=== PATIENT | male | born 1970 | race Caucasian/White ===

== ENCOUNTER 2022-09-09 21:44 | Emergency (ER) | payer MEDICAID ==
[~2022-09-09] VITALS: Ht 182.9 cm; Wt 75.6 kg
[2022-09-09 23:35] LABS: Basophils # (auto) 0.1 10 ^3/uL (0-0.2); Basophils % (auto) 0.4 % (0.0-2.0); Eosinophils # (auto) 0.1 10 ^3/uL (0-0.8); Eosinophils % (auto) 0.8 % (0.0-7.0); Hematocrit 45.4 % (41.0-53.0); Hemoglobin 15.1 g/dL (13.5-17.5); Lymphocytes # (auto) 1.7 10 ^3/uL (0.4-5.4); Mean Corpuscular Hemoglobin 28.9 pg (28.0-32.0); Mean Corpuscular Hgb Conc. 33.2 g/dL (32.0-36.0); Mean Corpuscular Volume 87.1 fL (80.0-100.0); Monocytes # (auto) 1.1 10 ^3/uL (0-1.3); Monocytes % (auto) 7.2 % (0.0-12.0); Neutrophils # (auto) 12.6 10 ^3/uL (1.6-8.6); Neutrophils % (auto) 80.6 % (37.0-80.0); Nucleated Red Blood Cells % 0.1 %; Red Blood Cells 5.22 10^6/uL (4.5-5.90); Red Cell Distribution Width 13.9 % (11.8-14.3); White Blood Cell 15.6 10^3/uL (4.4-10.8)
[2022-09-09 23:49] LABS: Albumin 3.7 g/dL (3.4-5.0); BUN/Creatinine Ratio 20.4; Potassium 3.9 mmol/L (3.5-5.1)
[2022-09-09 23:52] LABS: Bilirubin, Total 0.3 mg/dL (0.2-1.0); Total Protein 7.5 g/dL (6.4-8.2)
[2022-09-09 23:58] LABS: Lactic Acid w/Reflex 2.5 mmol/L (0.4-2.0)
[2022-09-10] MEDS ORDERED: cefTRIAXone SOD 1,000 MG VL IM ONE (05:15)
[2022-09-10] MEDS ORDERED: AZITHROMYCIN 250 MG TAB PO ONE (05:15)
[2022-09-10 09:23] VITALS: BP 143/98
== END 2022-09-10 09:24 | disposition home or self-care (01) ==
LOC: ER 21:44
DX: J06.9 Acute upper respiratory infection, unspecified (principal); I10 Essential (primary) hypertension
CPT/HCPCS: 36415; 71045; 80053; 83605; 83880; 84484; 85025; 96372; 99284; J0696

== ENCOUNTER 2023-04-19 16:27 | Emergency (ER) | payer MEDICAID ==
[~2023-04-19] VITALS: Ht 182.9 cm; Wt 88.0 kg
[2023-04-19 16:30] VITALS: BP 154/106; RESP 12; O2SAT 97
[2023-04-19] MEDS ORDERED: NALOXONE HCL 1MG/ML 2ML SYRINGE IV ONE (17:15)
[2023-04-19 18:50] LABS: Basophils # (auto) 0 10 ^3/uL (0-0.2); Basophils % (auto) 0.2 % (0.0-2.0); Eosinophils # (auto) 0.1 10 ^3/uL (0-0.8); Eosinophils % (auto) 0.9 % (0.0-7.0); Hematocrit 47.9 % (41.0-53.0); Hemoglobin 16.3 g/dL (13.5-17.5); Lymphocytes # (auto) 1.4 10 ^3/uL (0.4-5.4); Lymphocytes % (auto) 11.2 % (10.0-50.0); Mean Corpuscular Hemoglobin 29.8 pg (28.0-32.0); Mean Corpuscular Hgb Conc. 34.1 g/dL (32.0-36.0); Mean Corpuscular Volume 87.5 fL (80.0-100.0); Monocytes # (auto) 0.7 10 ^3/uL (0-1.3); Monocytes % (auto) 5.5 % (0.0-12.0); Neutrophils # (auto) 9.9 10 ^3/uL (1.6-8.6); Neutrophils % (auto) 82.2 % (37.0-80.0); Nucleated Red Blood Cells % 0.1 %; Red Blood Cells 5.48 10^6/uL (4.5-5.90); Red Cell Distribution Width 13.9 % (11.8-14.3); White Blood Cell 12.1 10^3/uL (4.4-10.8)
[2023-04-19 19:05] LABS: Alanine Aminotransferase 25 U/L (7-40); Albumin 4.8 g/dL (3.2-4.8); Alkaline Phosphatase 137 U/L (46-116); Anion Gap 3.3 (5-15); Aspartate Aminotransferase 11 U/L (13-40); Blood Urea Nitrogen 12 mg/dL (9-23); Calcium 9.6 mg/dL (8.7-10.4); Carbon Dioxide 31.7 mmol/L (20-30); Chloride 104 mmol/L (98-107); Glucose 179 mg/dL (74-106); Magnesium 2.1 mg/dL (1.6-2.6); Potassium 4.4 mmol/L (3.5-5.1); Sodium 139 mmol/L (136-145)
[2023-04-19 19:06] LABS: Bilirubin, Total 0.5 mg/dL (0.2-1.0); Total Protein 8.2 g/dL (5.7-8.2)
[2023-04-19 19:30] LABS: INR 0.98 (0.9-1.15); Partial Thromboplastin Time 25.9 SEC (24.5-34.5); Prothrombin Time 10.3 sec (9.3-11.8)
[2023-04-19 20:37] VITALS: PULSE 108
== END 2023-04-19 20:30 | disposition left against medical advice (07) ==
LOC: ER 16:27 → EDBD 16:27 → ER 20:03
DX: R53.1 Weakness (principal); R07.81 Pleurodynia; Z79.899 Other long term (current) drug therapy; Z79.01 Long term (current) use of anticoagulants
CPT/HCPCS: 36415; 80053; 82962; 83735; 83880; 84484; 85025; 85610; 85730; 93005

== ENCOUNTER 2025-04-19 23:22 | Inpatient (IN) | payer MEDICAID ==
[~2025-04-19] VITALS: Ht 182.9 cm; Wt 71.6 kg
--- NOTE | 2025-04-19 23:50 | ED.PDOC ---
Musculoskeletal HPI Comments 55-year-old male who came to ER for bilateral foot pain. Patient lives in a wellness house, has been complaining of bilateral foot pain for the past 2 days. Denies any recent trauma. Denies any fever. Chief Complaint: Lower Extremity Time Seen by MD: 00:00 Primary Care Provider: JAGDISH Alexis Notes: Nurses Notes Allergies: Coded Allergies: NO KNOWN ALLERGIES (Unverified , 04/19/23) Mode of Arrival: Ambulatory Location: Bilateral Extremity Location: Foot Timing: Days Severity: Moderate Able to Move Extremity: Yes Bear Weight: Limited Pain: Moderate Hand Dominance: Right Mechanism: Spontaneous Circumstances: Spontaneous Onset of Symptoms: Spontaneous Symptoms: Pain Associated signs and symptoms: Foot pain Past Medical History PAST MEDICAL HISTORY: HTN Past Medical History (Other): Endocarditis Surgical History: Denies all surgeries Family History Family History: Reviewed,noncontributory to illness Social History Smoker: Non-Smoker Alcohol: Denies ETOH Use Drugs: Methamphetamine Lives In: Other (Wellness house) Constitutional: denies: chills, diaphoresis, fatigue, fever, malaise, sweats, weakness, others EENTM: denies: blurred vision, double vision, ear bleeding, ear discharge, ear drainage, ear pain, ear ringing, eye pain, eye redness, hearing loss, mouth pain, mouth swelling, nasal discharge, nose bleeding, nose congestion, nose pain, photophobia, tearing, throat pain, throat swelling, voice changes, others Respiratory: denies: cough, hemoptysis, orthopnea, SOB at rest, shortness of breath, SOB with excertion, stridor, wheezing, others Cardiovascular: denies: chest pain, dizzy spells, diaphoresis, Dyspnea on exertion, edema, irregular heart beat, left arm pain, lightheadedness, palpitations, PND, syncope, others Gastrointestinal: denies: abdomen distended, abdominal pain, blood streaked bowels, constipated, diarrhea, dysphagia, difficulty swallowing, hematemesis, melena, nausea, poor appetite, poor fluid intake, rectal bleeding, rectal pain, vomiting, others Genitourinary: denies: burning, dysuria, flank pain, frequency, hematuria, incontinence, penile discharge, penile sore, pain, testicle pain, testicle swelling, urgency, others Neurological: denies: dizziness, fainting, headache, left sided numbness, left sided weakness, numbness, paresthesia, pre-existing deficit, right sided numbness, right sided weakness, seizure, speech problems, tingling, tremors, weakness, others Musculoskeletal: reports: others (Bilateral foot pain); denies: back pain, gout, joint pain, joint swelling, muscle pain, muscle stiffness, neck pain Integumetry: denies: bruises, change in color, change in hair/nails, dryness, laceration, lesions, lumps, rash, wounds, others Allergic/Immunocompromised: denies: Difficulty Healing, Frequent Infections, Hives, Itching, others Hematologic/Lymphatic: denies: anemia, blood clots, easy bleeding, easy bruising, swollen glands, others Endocrine: denies: excessive hunger, excessive sweating, excessive thirst, excessive urination, flushing, intolerance to cold, intolerance to heat, unexplained weight gain, unexplained weight loss, others Psychiatric: denies: anxiety, bipolar disorder, depression, hopeless, panic disorder, schizophrenia, sleepless, suicidal, others Physical Exam General Appearance: No Apparent Distress, Normal HEENT: Normal ENT Inspection, Pharynx Normal, TMs Normal Neck: Full Range of Motion, Non-Tender, Normal, Normal Inspection Respiratory: Chest Non-Tender, Lungs Clear, No Accessory Muscle Use, No Respiratory Distress, Normal Breath Sounds Cardiovascular: No Edema, No JVD, No Murmur, No Gallop, Normal Peripheral Pulses, Regular Rate/Rhythm Breast Exam: Deferred Gastrointestinal: No Organomegaly, Non Tender, No Pulsatile Mass, Normal Bowel Sounds, Soft Genitalia: Deferred Pelvic: Deferred Rectal: Deferred Extremities: Inflammation (noted erythema, redness over left foot), No calf tenderness, Normal capillary refill, Normal range of motion, No pedal edema, Other (Dried blood located in between toes, with pus seen between 3rd and 4th toe of left foot) Musculoskeletal : Apperance: Normal Neurologic: Alert, tool crib attendant II-XII nml as Tested, No Motor Deficits, Normal Affect, Normal Mood, No Sensory Deficits Cerebellar Function: Normal Reflexes: Normal Skin: Dry, Normal Color, Warm Lymphatic: No Adenopathy Was a procedure done? Was a procedure done?: No Differential Diagnosis EXT Differential Diagnosis: Cellulitis, Compartment Syndrome, Laceration, Septic, Other (necrotizing fasciitis) X-Ray, Labs, Meds, VS Vital Signs Date Time Temp Pulse Resp B/P (MAP) Pulse Ox O2 Delivery O2 Flow Rate FiO2 04/19/25 23:29 98.7 105 20 141/96 100 98.7 Lab Test 04/20/25 00:07 Range/Units White Blood Count 17.0 H 4.4-10.8 10^3/uL Red Blood Count 4.81 4.5-5.90 10^6/uL Hemoglobin 14.5 13.5-17.5 g/dL Hematocrit 41.4 41.0-53.0 % Mean Corpuscular Volume 86.1 80.0-100.0 fL Mean Corpuscular Hemoglobin 30.1 28.0-32.0 pg Mean Corpuscular Hemoglobin Concent 35.0 32.0-36.0 g/dL Red Cell Distribution Width 14.3 11.8-14.3 % Platelet Count 248 140-450 10^3/uL Mean Platelet Volume 6.7 L 6.9-10.8 fL Neutrophils (%) (Auto) 80.0 37.0-80.0 % Lymphocytes (%) (Auto) 8.6 L 10.0-50.0 % Monocytes (%) (Auto) 11.2 0.0-12.0 % Eosinophils (%) (Auto) 0.1 0.0-7.0 % Basophils (%) (Auto) 0.1 0.0-2.0 % Neutrophils # (Auto) 13.5 H 1.6-8.6 10 ^3/uL Lymphocytes # (Auto) 1.5 0.4-5.4 10 ^3/uL Monocytes # (Auto) 1.9 H 0-1.3 10 ^3/uL Eosinophils # (Auto) 0 0-0.8 10 ^3/uL Basophils # (Auto) 0 0-0.2 10 ^3/uL Nucleated Red Blood Cells 0.0 % Sodium Level Pending Potassium Level Pending Chloride Level Pending Carbon Dioxide Level Pending Anion Gap Pending Blood Urea Nitrogen Pending Creatinine Pending Glomerular Filtration Rate Calc Pending BUN/Creatinine Ratio Pending Serum Glucose Pending Lactic Acid Level Pending Calcium Level Pending Time of 1ST Reevaluation: 23:46 Reevaluation 1ST: Unchanged Patient Education/Counseling: Diagnosis, Treatment, Prognosis, Need For Follow Up Family Education/Counseling: No Family Present Sepsis Sepsis Reasesment Focused Exam Orders: Laboratory Tests 04/20/25 00:07: Departure 1 Departure Time of Disposition: 00:34 Impression: Primary Impression: Cellulitis Qualified Codes: L03.116 - Cellulitis of left lower limb Disposition: 09 ADMITTED INPATIENT Admit to: Med Surg Condition: Serious Critical Care Note Critical Care Time?: Yes (55 min-critical care time only) Critical care comment: Due to concerns for patients condition deteriorating, the care required my highest level of attention and readiness to intervene. I assessed the patient, reviewed the medical records, ordered the appropriate tests and treatments, then reassessed for results and responsiveness. I communicated with medical personnel and consultants and formulated a plan of care. Total critical care time excludes any procedures Patient has a homeless individual who lives in a alf. He likely acquired a foot fungal infection which then had a secondary bacterial infection. Now he has cellulitis of the left foot and left lower leg. There is no crepitus area is not swollen necrotizing fasciitis is a possibility but unlikely. He will be admitted for treatment of the foot infection with cellulitis and possibly early sepsis. Stability Stability form required: No Heart Score Heart Score: Heart Score Response (Comments) Value History N/A 0 EKG N/A 0 Age N/A 0 Risk Factors N/A 0 Troponin N/A 0 Total 0 I personally scribed for KEELY ISRAEL MD ([email or web address]) on 04/19/25 at 23:49. Electronically submitted by Blas Berg ([employer]). I personally scribed for KEELY ISRAEL MD ([email or web address]) on 04/20/25 at 00:01. Electronically submitted by Blas Berg ([email or web address]). KEELY ISRAEL MD Apr 19, 2025 23:49
[2025-04-20] VITALS (8 sets, daily range): BP systolic 111–139; BP diastolic 65–89; PULSE 65–113; RESP 17–22; TEMP 97.9–99; O2SAT 94–99
[2025-04-20 00:20] LABS: Hematocrit 41.4 % (41.0-53.0); Hemoglobin 14.5 g/dL (13.5-17.5); Mean Corpuscular Hemoglobin 30.1 pg (28.0-32.0); Mean Corpuscular Volume 86.1 fL (80.0-100.0); Nucleated Red Blood Cells % 0.0 %
--- NOTE | 2025-04-20 00:21 | DVH ---
INDICATION: r/o sepsis TECHNIQUE: Frontal view of the chest. COMPARISON: CHEST PORTABLE on DOS: 09/09/22, CXRP on DOS: 09/09/22 FINDINGS/IMPRESSION: Evaluation of the lung apices is suboptimal due to positioning. No consolidation. The cardiomediasti nal silhouette is unremarkable. No pleural effusion or pneumothorax. No acute osseous abnormality.
[2025-04-20 00:32] LABS: Potassium 3.7 mmol/L (3.5-5.1); Sodium 136 mmol/L (136-145)
[2025-04-20 00:33] LABS: Anion Gap 9 (5-15); Calcium 9.4 mg/dL (8.7-10.4); Carbon Dioxide 29 mmol/L (20-31)
[2025-04-20 00:34] LABS: Chloride 98 mmol/L (98-107)
[2025-04-20 00:38] LABS: BUN/Creatinine Ratio 10.3 (10.0-20.0); Blood Urea Nitrogen 10 mg/dL (9-23)
[2025-04-20 00:39] LABS: Glucose 123 mg/dL (74-106)
[2025-04-20 00:44] LABS: Lactic Acid w/Reflex 2.9 mmol/L (0.4-2.0)
[2025-04-20] MEDS ORDERED: NITROGLYCERIN 0.4 MG SL TAB SL PRN (01:15)
[2025-04-20] MEDS ORDERED: DOCUSATE SOD 100 MG CAP PO PRN (01:15)
[2025-04-20] MEDS ORDERED: VANCOMYCIN PER PHARMACY 0 MG IV SCH (01:15)
--- NOTE | 2025-04-20 01:22 | DVHHP2 ---
History of Present Illness Reason for Visit: Cellulitis History of Present Illness The patient is a 55-year-old male with past medical history of hypertension and endocarditis who presented to [facility] ED with complaint of bilateral foot pain. Patient lives in a wellness house, has been complaining of bilateral foot pain for the past 2 days. Patient was seen and evaluated in the ED, laboratory data shows WBC 17.0, platelets 248, sodium 136, potassium 3.7, BUN 10, creatinine 0.97, glucose 123, lactic acid 2.3, calcium 9.4, blood pressure 141/96, heart rate 104, temperature 98.7 F, O2 saturation 99% on room air. Patient was started on IV antibiotic regimen cefepime, please see me dication orders section in the computer. On my assessment, patient denied chest pain, no headache, no dizziness, no shortness of breaths, no nausea, no vomiting, no fever, no chills. Patient was admitted for further evaluation and medical management. Past Medical History HTN, Endocarditis Past Surgical History Denies all surgeries Family History Reviewed, noncontributory to the management of this case. Past Social History The patient lives at home, denies smoking, alcohol or illicit drugs abuse. Review of Systems Constitutional: No: Fever, Chills, Sweats, Weakness, Malaise, Other Eyes: No: Pain, Vision change, Conjunctivae inflammation, Eyelid inflammation, Other, Redness ENT: No: Ear pain, Ear discharge, Nose pain, Nose discharge, Nose congestion, Mouth pain, Mouth swelling, Throat pain, Throat swelling, Other Respiratory: No: Cough, Dry, Shortness of breath, SOB with excertion, Wheezing, Hemoptysis, Pleuritic Pain, Sputum, Wheezing, Other Cardiovascular: No: Chest Pain, Palpitations, Orthopnea, Paroxysmal Noc. Dyspnea, Edema, Lt Headedness, Other Gastrointestinal: No: Nausea, Vomiting, Abdominal Pain, Diarrhea, Constipation, Melena, Hematochezia, Other Genitourinary: No Dysuria, No Frequency, No Incontinence, No Hematuria, No Retention, No Other Musculoskeletal: other (Bilateral foot pain); No: neck pain, shoulder pain, arm pain, back pain, hand pain, leg pain, foot pain Skin: No: Rash, Lesions, Jaundice, Bruising, Other Neurological: No: Weakness, Numbness, Incoordination, Change in speech, Confusion, Seizures, Other Allergies: Coded Allergies: NO KNOWN ALLERGIES (Unverified , 04/19/23) Medications Current Medications Medications Dose Ordered Sig/[place] Route Start Time Stop Time Status Last Admin Dose Admin Cefepime HCl 50 ml @ 12.5 mls/hr Q8HR IV 04/20/25 06:00 UNV Vancomycin HCl 0 ml @ 0 mls/hr UD IV 04/20/25 01:15 UNV Sodium Chloride 1,000 ml @ 60 mls/hr [id number] IV 04/20/25 01:15 UNV Acetaminophen/ Hydrocodone Bitart 1 tab Q4HP PRN PO 04/20/25 01:15 UNV Ondansetron HCl 4 mg Q4HP PRN IV 04/20/25 01:15 UNV Docusate Sodium 100 mg BIDPRN PRN PO 04/20/25 01:15 UNV Acetaminophen 650 mg Q6HP PRN PO 04/20/25 01:15 UNV Nitroglycerin 0.4 mg Q5MINP PRN SL 04/20/25 01:15 UNV Morphine Sulfate 2 mg Q30M PRN IV 04/20/25 01:15 UNV Exam Vital Signs Vital Signs Date Time Temp Pulse Resp B/P (MAP) Pulse Ox O2 Delivery O2 Flow Rate FiO2 04/19/25 23:29 98.7 105 20 141/96 100 98.7 General Appearance: Alert, Oriented X3, Cooperative, No acute distress HEENT: Atraumatic, PERRLA, EOMI, Mucous membr. moist/pink Respiratory: Normal air movement Cardiovascular: Regular rate, Normal S1, Normal S2, No murmurs Abdominal: Normal bowel sounds, Soft, No tenderness, No hepatospenomegaly, No masses Extremities: No clubbing, No cyanosis, No edema, Normal pulses, No tenderness/swelling Skin: No rashes, No breakdown, No significant lesion Neuro: Normal speech, Normal tone, Sensation intact, Cranial nerves 3-12 NL, Reflexes 2+, Other (Generalized weakness) Psych/Mental Status: Mental status NL, Mood NL Labs/Xrays Labs Test 04/20/25 00:07 Range/Units White Blood Count 17.0 H 4.4-10.8 10^3/uL Red Blood Count 4.81 4.5-5.90 10^6/uL Hemoglobin 14.5 13.5-17.5 g/dL Hematocrit 41.4 41.0-53.0 % Mean Corpuscular Volume 86.1 80.0-100.0 fL Mean Corpuscular Hemoglobin 30.1 28.0-32.0 pg Mean Corpuscular Hemoglobin Concent 35.0 32.0-36.0 g/dL Red Cell Distribution Width 14.3 11.8-14.3 % Platelet Count 248 140-450 10^3/uL Mean Platelet Volume 6.7 L 6.9-10.8 fL Neutrophils (%) (Auto) 80.0 37.0-80.0 % Lymphocytes (%) (Auto) 8.6 L 10.0-50.0 % Monocytes (%) (Auto) 11.2 0.0-12.0 % Eosinophils (%) (Auto) 0.1 0.0-7.0 % Basophils (%) (Auto) 0.1 0.0-2.0 % Neutrophils # (Auto) 13.5 H 1.6-8.6 10 ^3/uL Lymphocytes # (Auto) 1.5 0.4-5.4 10 ^3/uL Monocytes # (Auto) 1.9 H 0-1.3 10 ^3/uL Eosinophils # (Auto) 0 0-0.8 10 ^3/uL Basophils # (Auto) 0 0-0.2 10 ^3/uL Nucleated Red Blood Cells 0.0 % Sodium Level 136 136-145 mmol/L Potassium Level 3.7 3.5-5.1 mmol/L Chloride Level 98 98-107 mmol/L Carbon Dioxide Level 29 20-31 mmol/L Anion Gap 9 5-15 Blood Urea Nitrogen 10 9-23 mg/dL Creatinine 0.97 0.700-1.30 mg/dL Glomerular Filtration Rate Calc 92 >90 mL/min BUN/Creatinine Ratio 10.3 10.0-20.0 Serum Glucose 123 H 74-106 mg/dL Lactic Acid Level 2.9 *H 0.4-2.0 mmol/L Calcium Level 9.4 8.7-10.4 mg/dL PATIENT: OFELIA FIGUEROA ACCT: [id number] UNIT: [id number] : 1970 LOC: ER ROOM / BED: / AGE / SEX: 55 / M ADM STATUS: REG ER SERVICE 44 ORDERING PHYSICIAN: KEELY ISRAEL MD PROCEDURE(s): CXRP - CHEST PORTABLE REASON: r/o sepsis ORDER NUMBER(s): [id number], ACCESSION NUMBER(s): [id number] INDICATION: r/o sepsis TECHNIQUE: Frontal view of the chest. COMPARISON: CHEST PORTABLE on DOS: 09/09/22, CXRP on DOS: 09/09/22 FINDINGS/IMPRESSION: Evaluation of the lung apices is suboptimal due to positioning. No consolidation. The cardiomediastinal silhouette is unremarkable. No pleural effusion or pneumothorax. No acute osseous abnormality. SEPSIS Sepsis Screen Date sepsis recognized/suspect: Apr 19, 2025 Time Sepsis recognized/suspect: 2333 Recent Procedure: No On Antibiotic Therapy: No Respiratory Rate >20: No Heart Rate >90: No Temp<36 C (96.8 F) or >38.3 C: No SBP <90 or MAP <65 mmHG: No New Acute Mental Status Change: No Is the patient on CPAP, BIPAP,: No Physician Orders Urinalysis (04/19/25 23:45) Chest Portable (04/19/25 23:45) Accucheck (04/19/25 23:45) Blood Culture (04/19/25 23:45) Cefepime 1gm/50ml (Maxipime 1gm/50ml) (04/20/25 06:00) Notify Md If Map <65 Or Bp<90 (04/19/25 23:45) If Map<65 Start Vasopressor (04/19/25 23:45) Sepsis Reassesment After Fluid (04/20/25 00:45) Cefepime 1gm/50ml (Maxipime 1gm/50ml) (04/19/25 23:45) Complete Blood Count (04/20/25 04:00) Comprehensive Metabolic Panel (04/20/25 04:00) Vancomycin Per Pharmacy (04/20/25 01:15) Admit (04/20/25 01:11) Allergies (04/20/25 01:11) Code Status (04/20/25 01:11) Sodium Chloride 0.9% (04/20/25 01:15) Oxygen Per Hour (04/20/25 01:11) Hydrocodone-Acet 5/325mg Tab ([place] 5/32 (04/20/25 01:15) Ondansetron Hcl (Zofran) (04/20/25 01:15) Docusate Sodium Capsule (Colace Capsule) (04/20/25 01:15) Complete Blood Count (04/21/25 04:00) Comprehensive Metabolic Panel (04/21/25 04:00) Cardiac Diet-2gna,Lofat,Lochol (04/20/25 Breakfast) Condition: Serious (04/20/25 01:11) Acetaminophen Tablet (Tylenol Tablet) (04/20/25 01:15) Bedrest With Bathroom Privileg (04/20/25 01:11) Sequential Compression Device (04/20/25 ) Nitroglycerin Sublingual (Ntrostat Subli (04/20/25 01:15) Morphine Sulfate Injection (04/20/25 01:15) Notify Md Of Changes From Base (04/20/25 01:11) Emergency Dysrhythmia Protocol (04/20/25 01:11) Oxygen By Nasal Cannula (04/20/25 01:11) Vital Signs Date Time Temp Pulse Resp B/P (MAP) Pulse Ox O2 Delivery O2 Flow Rate FiO2 04/19/25 23:29 98.7 105 20 141/96 100 98.7 Laboratory Tests Test 04/20/25 00:07 Lactic Acid Level 2.9 mmol/L (0.4-2.0) *H White Blood Count 17.0 10^3/uL (4.4-10.8) H Assessment/Plan Assessment/Plan Cellulitis Cellulitis of left lower limb Leukocytosis, unspecified Plan 1. Admit to med surge unit 2. Breathing treatment 3. Pain control management 4. IV antibiotic management 5. Management of fluids and electrolytes 6. Consultation for hospitalist l/wound care 7. Diagnostic test chest x-ray 8. DVT prophylaxis-on SCDs 9. Repeat labs CBC, CMP in a.m. 10. Continue with current medical management 11. Treatment plan discussed with patient and RN. Patient verbalized understanding. Plan discussed with: Patient, Other (RN) My Orders Orders - JAY HERR DNP Procedure Category Date Status Time Complete Blood Count LAB 04/20/25 Logged 04:00 Comprehensive LAB 04/20/25 Logged Metabolic Panel 04:00 Vancomycin Per PHA 04/20/25 Logged Pharmacy 01:15 Admit ADMIT 04/20/25 Transmitted 01:[address] [facility] 04/20/25 In Process 01:11 Code Status CODE 04/20/25 Transmitted 01:11 Sodium Chloride 0.9% PHA 04/20/25 Logged 01:15 Oxygen Per Hour RT 04/20/25 Transmitted 01:11 Hydrocodone-Acet PHA 04/20/25 Logged 5/325mg Tab ([place] 01:15 Ondansetron Hcl [facility] 04/20/25 Logged (Zofran) 01:15 Docusate Sodium [facility] 04/20/25 Logged Capsule (Colace 01:15 Complete Blood Count LAB 04/21/25 Verified 04:00 Comprehensive LAB 04/21/25 Verified Metabolic Panel 04:00 Cardiac DIET 04/20/25 Transmitted Diet-2gna,Lofat,Lochol Breakfast Condition: Serious [facility] 04/20/25 In Process 01:11 Acetaminophen Tablet [facility] 04/20/25 Logged (Tylenol Tablet) 01:15 Bedrest With Bathroom [facility] 04/20/25 In Process Privileg 01:[address] [facility] 04/20/25 In Process Compression Device Nitroglycerin [facility] 04/20/25 Logged Sublingual (Ntrostat 01:15 Morphine Sulfate [facility] 04/20/25 Transmitted Injection 01:15 Notify Md Of Changes [facility] 04/20/25 In Process From Base 01:11 Emergency Dysrhythmia [facility] 04/20/25 In Process Protocol 01:11 Oxygen By Nasal RT 04/20/25 Transmitted Cannula 01:11 Problem List: (1) Cellulitis (2) Cellulitis of left lower limb (3) Leukocytosis, unspecified Date of Service: Apr 20, 2025 Billing Provider: JAY HERR DNP Common Visit Codes: [id number] INP/OBS CARE (HIGH) JAY HERR DNP Apr 20, 2025 01:22
[2025-04-20] MEDS: SODIUM CHLORIDE 0.9% 1,000 ML IV SCH (02:13)
[2025-04-20] MEDS: LACTATED RINGER'S 2,350 ML IV ONE (02:13)
[2025-04-20] MEDS: ONDANSETRON HCL 4 MG/2 ML VIAL IV PRN (02:16)
[2025-04-20] MEDS: CEFEPIME 1GM/50ML 50 ML IV ONE (02:17)
[2025-04-20] MEDS: VANCOMYCIN 1GM/250ML KIT 250 ML IV SCH ×2 (02:17→14:45)
[2025-04-20] MEDS: CEFEPIME 1GM/50ML 50 ML IV SCH ×2 (06:00→09:31)
[2025-04-20] MEDS: HYDROcodone-ACET 5/325MG TAB PO PRN (12:42)
[2025-04-20 13:57] LABS: Hematocrit 41.3 % (41.0-53.0); Hemoglobin 13.8 g/dL (13.5-17.5); Mean Corpuscular Hemoglobin 29.4 pg (28.0-32.0); Mean Corpuscular Volume 87.9 fL (80.0-100.0); Nucleated Red Blood Cells % 0.1 %
[2025-04-20 14:14] LABS: Alanine Aminotransferase 22 U/L (7-40); Albumin 4.1 g/dL (3.2-4.8); Alkaline Phosphatase 93 U/L (46-116); Anion Gap 9 (5-15); BUN/Creatinine Ratio 11.4 (10.0-20.0); Bilirubin, Total 0.5 mg/dL (0.2-1.0); Blood Urea Nitrogen 10 mg/dL (9-23); Calcium 9.0 mg/dL (8.7-10.4); Carbon Dioxide 27 mmol/L (20-31); Chloride 100 mmol/L (98-107); Total Protein 7.2 g/dL (5.7-8.2)
[2025-04-20 14:18] LABS: Potassium 3.2 mmol/L (3.5-5.1); Sodium 136 mmol/L (136-145)
[2025-04-20 14:19] LABS: Glucose 267 mg/dL (74-106)
--- NOTE | 2025-04-20 17:53 | DVHPN2 ---
Subjective Patient is here for left lower extremity cellulitis currently on IV antibiotics. Changes from previous H/P or p: No Changes Eyes: No Pain, No Vision change, No Conjunctivae inflammation, No Eyelid inflammation, No Other, No Redness ENT: No Ear pain, No Ear discharge, No Nose pain, No Nose discharge, No Nose congestion, No Mouth pain, No Mouth swelling, No Throat pain, No Throat swelling, No Other Cardiovascular: No Chest Pain, No Palpitations, No Orthopnea, No Paroxysmal Noc. Dyspnea, No Edema, No Lt Headedness, No Other Respiratory: No Cough, No Dry, No Shortness of breath, No SOB with excertion, No Wheezing, No Hemoptysis, No Pleuritic Pain, No Sputum, No Other Gastrointestinal: No Nausea, No Vomiting, No Abdominal Pain, No Diarrhea, No Constipation, No Melena, No Hematochezia, No Other Genitourinary: No Dysuria, No Frequency, No Incontinence, No Hematuria, No Retention, No Other Musculoskeletal: other (Bilateral foot pain); No neck pain, No shoulder pain, No arm pain, No back pain, No hand pain, No leg pain, No foot pain Skin: No Rash, No Lesions, No Jaundice, No Bruising, No Other Objective Vitals Vital Signs Date Time Temp Pulse Resp B/P (MAP) Pulse Ox O2 Delivery O2 Flow Rate FiO2 04/20/25 17:24 98.4 65 21 111/79 (90) 99 98.4 04/20/25 07:30 Room Air* 0 21 Exam HEENT pupils are reactive Neck is supple CV is S1-S2 regular rate and rhythm Respiratory are clear GI positive bowel sound Extremity no edema [employer] no motor deficits Left 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 Medications Current Medications Medications Dose Ordered Sig/[place] Route Start Time Stop Time Status Last Admin Dose Admin Vancomycin HCl 0 ml @ 0 mls/hr UD IV 04/20/25 01:15 Sodium Chloride 1,000 ml @ 60 mls/hr [id number] IV 04/20/25 01:15 04/20/25 06:58 60 MLS/HR Ondansetron HCl 4 mg Q4HP PRN IV 04/20/25 01:15 04/20/25 02:16 4 MG Docusate Sodium 100 mg BIDPRN PRN PO 04/20/25 01:15 Acetaminophen 650 mg Q6HP PRN PO 04/20/25 01:15 Nitroglycerin 0.4 mg Q5MINP PRN SL 04/20/25 01:15 Morphine Sulfate 2 mg Q30M PRN IV 04/20/25 01:15 Cefepime HCl 50 ml @ 12.5 mls/hr Q8H IV 04/20/25 10:00 04/20/25 17:22 12.5 MLS/HR Alprazolam 0.5 mg BID PRN PO 04/20/25 16:15 Acetaminophen/ Hydrocodone Bitart 1 tab Q6HP PRN PO 04/20/25 16:15 Laboratory Results Laboratory Tests 04/20/25 13:27 Chemistry Test 04/20/25 00:07 04/20/25 13:27 Calcium Level 9.4 mg/dL (8.7-10.4) 9.0 mg/dL (8.7-10.4) Albumin 4.1 g/dL (3.2-4.8) Total Protein 7.2 g/dL (5.7-8.2) LFT Test 04/20/25 13:27 Alanine Aminotransferase (ALT) 22 U/L (7-40) Alkaline Phosphatase 93 U/L (46-116) Aspartate Amino Transferase (AST) 19 U/L (13-40) Total Bilirubin 0.5 mg/dL (0.2-1.0) Assessment/Plan Assessment/Plan 55-year-old male presented to the hospital with a bilateral lower extremity foot pain found to have 1. Left lower extremity cellulitis 2. Leukocytosis likely reactive secondary to 1. 3. Lactic acidosis -IV fluids IV antibiotics, repeat labs Plan discussed with: Patient My Orders Orders - SANTO ESCOBAR MD Procedure Category Date Status Time *Tele Psych Consult CONS 04/20/25 Transmitted 11:28 Alprazolam Tablet PHA 04/20/25 In Process (Xanax Tablet) 16:15 Hydrocodone-Acet PHA 04/20/25 In Process 10/325mg Tab ([place] 16:15 Date of Service: Apr 20, 2025 Billing Provider: SANTO ESCOBAR MD Common Visit Codes: [id number] INP/OBS CARE(MOD) SANTO ESCOBAR MD Apr 20, 2025 17:53
[2025-04-20] MEDS: HYDROcodone-ACET 10/325MG TAB PO PRN (20:02)
[2025-04-20] MEDS: ALPRAZolam 0.5 MG TAB PO PRN (21:12)
[2025-04-21 05:00] VITALS: BP 113/82; PULSE 86; RESP 18; TEMP 97.5; O2SAT 98
[2025-04-21 07:30] VITALS: PULSE 86; RESP 18; O2SAT 98
[2025-04-21 09:05] VITALS: BP 127/85; PULSE 89; RESP 18; TEMP 96; O2SAT 99
[2025-04-21 09:09] LABS: Hematocrit 38.3 % (41.0-53.0); Hemoglobin 13.2 g/dL (13.5-17.5); Mean Corpuscular Hemoglobin 29.7 pg (28.0-32.0); Mean Corpuscular Volume 85.8 fL (80.0-100.0); Nucleated Red Blood Cells % 0.0 %
[2025-04-21 09:26] LABS: Alanine Aminotransferase 26 U/L (7-40); Albumin 4.1 g/dL (3.2-4.8); Alkaline Phosphatase 88 U/L (46-116); Anion Gap 7 (5-15); BUN/Creatinine Ratio 13.1 (10.0-20.0); Bilirubin, Total 0.3 mg/dL (0.2-1.0); Blood Urea Nitrogen 11 mg/dL (9-23); Calcium 9.1 mg/dL (8.7-10.4); Carbon Dioxide 31 mmol/L (20-31); Chloride 100 mmol/L (98-107); Potassium 3.5 mmol/L (3.5-5.1); Sodium 138 mmol/L (136-145); Total Protein 7.2 g/dL (5.7-8.2)
[2025-04-21 09:34] LABS: Glucose 186 mg/dL (74-106)
[2025-04-21] MEDS: ACETAMINOPHEN 325 MG TAB PO PRN (09:38)
[2025-04-21 13:00] VITALS: BP 129/71; PULSE 71; RESP 18; TEMP 96.3; O2SAT 98
[2025-04-21 17:00] VITALS: BP 135/91; PULSE 83; RESP 20; TEMP 97.6; O2SAT 98
--- NOTE | 2025-04-21 18:06 | DVHPN2 ---
Subjective Patient is here for left lower extremity cellulitis currently on IV antibiotics. Changes from previous H/P or p: No Changes Eyes: No Pain, No Vision change, No Conjunctivae inflammation, No Eyelid inflammation, No Other, No Redness ENT: No Ear pain, No Ear discharge, No Nose pain, No Nose discharge, No Nose congestion, No Mouth pain, No Mouth swelling, No Throat pain, No Throat swelling, No Other Cardiovascular: No Chest Pain, No Palpitations, No Orthopnea, No Paroxysmal Noc. Dyspnea, No Edema, No Lt Headedness, No Other Respiratory: No Cough, No Dry, No Shortness of breath, No SOB with excertion, No Wheezing, No Hemoptysis, No Pleuritic Pain, No Sputum, No Other Gastrointestinal: No Nausea, No Vomiting, No Abdominal Pain, No Diarrhea, No Constipation, No Melena, No Hematochezia, No Other Genitourinary: No Dysuria, No Frequency, No Incontinence, No Hematuria, No Retention, No Other Musculoskeletal: other (Bilateral foot pain); No neck pain, No shoulder pain, No arm pain, No back pain, No hand pain, No leg pain, No foot pain Skin: No Rash, No Lesions, No Jaundice, No Bruising, No Other Objective Vitals Vital Signs Date Time Temp Pulse Resp B/P (MAP) Pulse Ox O2 Delivery O2 Flow Rate FiO2 04/21/25 17:00 97.6 83 20 135/91 (106) 98 97.6 04/21/25 07:30 Room Air* 0 21 Intake/Output Intake and Output 04/21/25 07:00 Intake Total 3100 ml Balance 3100 ml Intake Oral 3100 ml # Voids 5 Exam HEENT pupils are reactive Neck is supple CV is S1-S2 regular rate and rhythm Respiratory are clear GI positive bowel sound 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 Medications Current Medications Medications Dose Ordered Sig/Lowell Route Start Time Stop Time Status Last Admin Dose Admin Vancomycin HCl 0 ml @ 0 mls/hr UD IV 04/20/25 01:15 Sodium Chloride 1,000 ml @ 60 mls/hr [id number] IV 04/20/25 01:15 04/20/25 06:58 60 MLS/HR Ondansetron HCl 4 mg Q4HP PRN IV 04/20/25 01:15 04/20/25 02:16 4 MG Docusate Sodium 100 mg BIDPRN PRN PO 04/20/25 01:15 Acetaminophen 650 mg Q6HP PRN PO 04/20/25 01:15 04/21/25 09:38 650 MG Nitroglycerin 0.4 mg Q5MINP PRN SL 04/20/25 01:15 Morphine Sulfate 2 mg Q30M PRN IV 04/20/25 01:15 Cefepime HCl 50 ml @ 12.5 mls/hr Q8H IV 04/20/25 10:00 04/21/25 17:48 12.5 MLS/HR Alprazolam 0.5 mg BID PRN PO 04/20/25 16:15 04/21/25 09:38 0.5 MG Acetaminophen/ Hydrocodone Bitart 1 tab Q6HP PRN PO 04/20/25 16:15 04/21/25 17:48 1 TAB Vancomycin HCl 250 ml @ 250 mls/hr Q12H IV 04/21/25 14:00 Laboratory Results Laboratory Tests 04/21/25 08:47 Chemistry Test 04/21/25 08:47 Albumin 4.1 g/dL (3.2-4.8) Calcium Level 9.1 mg/dL (8.7-10.4) Total Protein 7.2 g/dL (5.7-8.2) LFT Test 04/21/25 08:47 Alanine Aminotransferase (ALT) 26 U/L (7-40) Alkaline Phosphatase 88 U/L (46-116) Aspartate Amino Transferase (AST) 22 U/L (13-40) Total Bilirubin 0.3 mg/dL (0.2-1.0) Microbiology Microbiology Date/Time Source Procedure Growth Status 04/20/25 00:07 Blood Blood Culture - Preliminary NO GROWTH AFTER 24 HOURS OF INCUBATION. Resulted Assessment/Plan Assessment/Plan 55-year-old male presented to the hospital with a bilateral lower extremity foot pain found to have 1. Left lower extremity cellulitis 2. Leukocytosis likely reactive secondary to 1. 3. Lactic acidosis -IV fluids IV antibiotics, discharge plan. Plan discussed with: Patient Date of Service: Apr 21, 2025 Billing Provider: SANTO ESCOBAR MD Common Visit Codes: [id number] INP/OBS CARE(MOD) SANTO ESCOBAR MD Apr 21, 2025 18:06
[2025-04-21] MEDS: VANCOMYCIN 1GM/250ML KIT 250 ML IV SCH (18:10)
[2025-04-21 21:00] VITALS: BP 122/87; PULSE 84; RESP 18; TEMP 98.1; O2SAT 98
[2025-04-21] MEDS ORDERED: VANCOMYCIN 1GM/250ML KIT 250 ML IV ONE (21:24)
[2025-04-22] VITALS (7 sets, daily range): BP systolic 133–154; BP diastolic 77–100; PULSE 63–81; RESP 18–20; TEMP 96.8–98; O2SAT 97–99
--- NOTE | 2025-04-22 16:30 | DVHPN2 ---
Subjective Patient is here for left lower extremity cellulitis currently on IV antibiotics. Changes from previous H/P or p: No Changes Eyes: No Pain, No Vision change, No Conjunctivae inflammation, No Eyelid inflammation, No Other, No Redness ENT: No Ear pain, No Ear discharge, No Nose pain, No Nose discharge, No Nose congestion, No Mouth pain, No Mouth swelling, No Throat pain, No Throat swelling, No Other Cardiovascular: No Chest Pain, No Palpitations, No Orthopnea, No Paroxysmal Noc. Dyspnea, No Edema, No Lt Headedness, No Other Respiratory: No Cough, No Dry, No Shortness of breath, No SOB with excertion, No Wheezing, No Hemoptysis, No Pleuritic Pain, No Sputum, No Other Gastrointestinal: No Nausea, No Vomiting, No Abdominal Pain, No Diarrhea, No Constipation, No Melena, No Hematochezia, No Other Genitourinary: No Dysuria, No Frequency, No Incontinence, No Hematuria, No Retention, No Other Musculoskeletal: other (Bilateral foot pain); No neck pain, No shoulder pain, No arm pain, No back pain, No hand pain, No leg pain, No foot pain Skin: No Rash, No Lesions, No Jaundice, No Bruising, No Other Objective Vitals Vital Signs Date Time Temp Pulse Resp B/P (MAP) Pulse Ox O2 Delivery O2 Flow Rate FiO2 04/22/25 13:00 98.0 66 20 138/77 (97) 97 98.0 04/22/25 08:30 Room Air* 0 21 Intake/Output Intake and Output 04/22/25 07:00 Intake Total 2100 ml Balance 2100 ml Intake Oral 1450 ml IV Total 650 ml # Voids 6 Exam HEENT pupils are reactive Neck is supple CV is S1-S2 regular rate and rhythm Respiratory are clear GI positive bowel sound 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 Medications Current Medications Medications Dose Ordered Sig/Lowell Route Start Time Stop Time Status Last Admin Dose Admin Vancomycin HCl 0 ml @ 0 mls/hr UD IV 04/20/25 01:15 Sodium Chloride 1,000 ml @ 60 mls/hr [id number] IV 04/20/25 01:15 04/20/25 06:58 60 MLS/HR Ondansetron HCl 4 mg Q4HP PRN IV 04/20/25 01:15 04/20/25 02:16 4 MG Docusate Sodium 100 mg BIDPRN PRN PO 04/20/25 01:15 Acetaminophen 650 mg Q6HP PRN PO 04/20/25 01:15 04/21/25 19:28 650 MG Nitroglycerin 0.4 mg Q5MINP PRN SL 04/20/25 01:15 Morphine Sulfate 2 mg Q30M PRN IV 04/20/25 01:15 Cefepime HCl 50 ml @ 12.5 mls/hr Q8H IV 04/20/25 10:00 04/22/25 10:13 12.5 MLS/HR Alprazolam 0.5 mg BID PRN PO 04/20/25 16:15 04/22/25 11:51 0.5 MG Acetaminophen/ Hydrocodone Bitart 1 tab Q6HP PRN PO 04/20/25 16:15 04/21/25 17:48 1 TAB Vancomycin HCl 250 ml @ 250 mls/hr Q12H IV 04/21/25 14:00 04/22/25 01:23 250 MLS/HR Laboratory Results Laboratory Tests 04/21/25 08:47 04/22/25 06:22 Microbiology Microbiology Date/Time Source Procedure Growth Status 04/20/25 00:07 Blood Blood Culture - Preliminary NO GROWTH AFTER 48 HOURS OF INCUBATION. Resulted Assessment/Plan Assessment/Plan 55-year-old male presented to the hospital with a bilateral lower extremity foot pain found to have 1. Left lower extremity cellulitis 2. Leukocytosis likely reactive secondary to 1. 3. Lactic acidosis 4. Chronic tobacco use disorder -IV fluids IV antibiotics, discharge plan. Plan discussed with: Patient Date of Service: Apr 22, 2025 Billing Provider: SANTO ESCOBAR MD Common Visit Codes: [id number] INP/OBS CARE(MOD) SANTO ESCOBAR MD Apr 22, 2025 16:30
[2025-04-22] MEDS: SULFAMETHOX W/TRIMETH(800/160MG) DS TAB PO SCH (22:33)
[2025-04-23] VITALS (8 sets, daily range): BP systolic 117–185; BP diastolic 73–116; PULSE 52–79; RESP 16–20; TEMP 96.3–99.3; O2SAT 95–100
[2025-04-23] MEDS ORDERED: ATEN25TA PO (01:22)
--- NOTE | 2025-04-23 16:06 | DVHPN2 ---
Subjective Patient is here for left lower extremity cellulitis currently on IV antibiotics. Today patient is complaining of nausea vomiting and not tolerating diet. Changes from previous H/P or p: No Changes Eyes: No Pain, No Vision change, No Conjunctivae inflammation, No Eyelid inflammation, No Other, No Redness ENT: No Ear pain, No Ear discharge, No Nose pain, No Nose discharge, No Nose congestion, No Mouth pain, No Mouth swelling, No Throat pain, No Throat swelling, No Other Cardiovascular: No Chest Pain, No Palpitations, No Orthopnea, No Paroxysmal Noc. Dyspnea, No Edema, No Lt Headedness, No Other Respiratory: No Cough, No Dry, No Shortness of breath, No SOB with excertion, No Wheezing, No Hemoptysis, No Pleuritic Pain, No Sputum, No Other Gastrointestinal: No Nausea, No Vomiting, No Abdominal Pain, No Diarrhea, No Constipation, No Melena, No Hematochezia, No Other Genitourinary: No Dysuria, No Frequency, No Incontinence, No Hematuria, No Retention, No Other Musculoskeletal: other (Bilateral foot pain); No neck pain, No shoulder pain, No arm pain, No back pain, No hand pain, No leg pain, No foot pain Skin: No Rash, No Lesions, No Jaundice, No Bruising, No Other Objective Vitals Vital Signs Date Time Temp Pulse Resp B/P (MAP) Pulse Ox O2 Delivery O2 Flow Rate FiO2 04/23/25 13:00 98.1 70 16 174/98 (123) 99 98.1 04/23/25 08:00 Room Air* 0 21 Intake/Output Intake and Output 04/23/25 07:00 Intake Total 840 ml Balance 840 ml Intake Oral 790 ml IV Total 50 ml # Voids 7 # Bowel Movements 5 Exam HEENT pupils are reactive Neck is supple CV is S1-S2 regular rate and rhythm Respiratory are clear GI positive bowel sound 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 Medications Current Medications Medications Dose Ordered Sig/Lowell Route Start Time Stop Time Status Last Admin Dose Admin Sodium Chloride 1,000 ml @ 60 mls/hr [id number] IV 04/20/25 01:15 04/23/25 12:40 60 MLS/HR Ondansetron HCl 4 mg Q4HP PRN IV 04/20/25 01:15 04/23/25 12:48 4 MG Docusate Sodium 100 mg BIDPRN PRN PO 04/20/25 01:15 Acetaminophen 650 mg Q6HP PRN PO 04/20/25 01:15 04/21/25 19:28 650 MG Nitroglycerin 0.4 mg Q5MINP PRN SL 04/20/25 01:15 Morphine Sulfate 2 mg Q30M PRN IV 04/20/25 01:15 Alprazolam 0.5 mg BID PRN PO 04/20/25 16:15 04/22/25 11:51 0.5 MG Acetaminophen/ Hydrocodone Bitart 1 tab Q6HP PRN PO 04/20/25 16:15 04/21/25 17:48 1 TAB Trimethoprim/ Sulfamethoxazole 1 tab Q12HR PO 04/22/25 22:00 04/22/25 22:33 1 TAB Hydralazine HCl 10 mg Q6HP PRN PO 04/23/25 05:45 Hydralazine HCl 10 mg Q6HP PRN IV 04/23/25 14:15 Morphine Sulfate 2 mg Q4HPRN PRN IV 04/23/25 14:15 Laboratory Results Laboratory Tests 04/21/25 08:47 04/23/25 00:59 Microbiology Microbiology Date/Time Source Procedure Growth Status 04/20/25 00:07 Blood Blood Culture - Preliminary NO GROWTH AFTER 72 HOURS OF INCUBATION. Resulted Assessment/Plan Assessment/Plan 55-year-old male presented to the hospital with a bilateral lower extremity foot pain found to have 1. Left lower extremity cellulitis, improving 2. Leukocytosis likely reactive secondary to 1. 3. Lactic acidosis, improved 4. Chronic tobacco use disorder 5. Intractable nausea and vomiting, Zofran p.r.n. nausea and vomiting, diet as tolerated -discontinue vancomycin and cefepime, start Bactrim p.o., discharge plan once tolerates diet. Plan discussed with: Patient My Orders Orders - SANTO ESCOBAR MD Procedure Category Date Status Time Sulfamethoxazole PHA 04/22/25 In Process W/Trimeth Tab (Bactrim 22:00 Hydralazine Injection PHA 04/23/25 In Process (Apresoline Inject 14:15 Morphine Sulfate PHA 04/23/25 In Process Injection 14:15 Date of Service: Apr 23, 2025 Billing Provider: SANTO ESCOBAR MD Common Visit Codes: [id number] INP/OBS CARE(MOD) SANTO ESCOBAR MD Apr 23, 2025 16:06
[2025-04-23] MEDS: hydrALAZINE HCL 20 MG/ML VL IV PRN (16:07)
[2025-04-23] MEDS: MORPHINE SULFATE INJ 2 MG/ml SYRG IV PRN (16:08)
[2025-04-24 01:00] VITALS: BP 151/83; PULSE 19; RESP 97; TEMP 98.2; O2SAT 97
[2025-04-24] MEDS: MORPHINE SULFATE INJ 2 MG/ml SYRG IV PRN (01:39)
[2025-04-24 05:00] VITALS: BP 190/104; PULSE 76; RESP 20; TEMP 98.4; O2SAT 98
[2025-04-24 08:00] VITALS: RESP 16
--- NOTE | 2025-04-24 15:03 | DVHDS2 ---
Discharge Summary Date of Admission Apr 20, 2025 at 01:11 Date of Discharge: Apr 24, 2025 Labs/Diagnostic Data: Laboratory Results Test 04/23/25 00:59 04/21/25 08:47 04/20/25 02:05 Creatinine 0.64 mg/dL (0.700-1.30) Glomerular Filtration Rate Calc 111 mL/min (>90) Vancomycin Level Trough 3.2 ug/mL (5-10) White Blood Count 10.0 10^3/uL (4.4-10.8) Red Blood Count 4.46 10^6/uL (4.5-5.90) Hemoglobin 13.2 g/dL (13.5-17.5) Hematocrit 38.3 % (41.0-53.0) Mean Corpuscular Volume 85.8 fL (80.0-100.0) Mean Corpuscular Hemoglobin 29.7 pg (28.0-32.0) Mean Corpuscular Hemoglobin Concent 34.6 g/dL (32.0-36.0) Red Cell Distribution Width 14.3 % (11.8-14.3) Platelet Count 258 10^3/uL (140-450) Mean Platelet Volume 6.9 fL (6.9-10.8) Neutrophils (%) (Auto) 73.7 % (37.0-80.0) Lymphocytes (%) (Auto) 13.8 % (10.0-50.0) Monocytes (%) (Auto) 9.7 % (0.0-12.0) Eosinophils (%) (Auto) 2.3 % (0.0-7.0) Basophils (%) (Auto) 0.5 % (0.0-2.0) Neutrophils # (Auto) 7.4 10 ^3/uL (1.6-8.6) Lymphocytes # (Auto) 1.4 10 ^3/uL (0.4-5.4) Monocytes # (Auto) 1.0 10 ^3/uL (0-1.3) Eosinophils # (Auto) 0.2 10 ^3/uL (0-0.8) Basophils # (Auto) 0 10 ^3/uL (0-0.2) Nucleated Red Blood Cells 0.0 % Sodium Level 138 mmol/L (136-145) Potassium Level 3.5 mmol/L (3.5-5.1) Chloride Level 100 mmol/L (98-107) Carbon Dioxide Level 31 mmol/L (20-31) Anion Gap 7 (5-15) Blood Urea Nitrogen 11 mg/dL (9-23) BUN/Creatinine Ratio 13.1 (10.0-20.0) Serum Glucose 186 mg/dL (74-106) Calcium Level 9.1 mg/dL (8.7-10.4) Total Bilirubin 0.3 mg/dL (0.2-1.0) Aspartate Amino Transferase (AST) 22 U/L (13-40) Alanine Aminotransferase (ALT) 26 U/L (7-40) Alkaline Phosphatase 88 U/L (46-116) Total Protein 7.2 g/dL (5.7-8.2) Albumin 4.1 g/dL (3.2-4.8) Lactic Acid Level 1.8 mmol/L (0.4-2.0) Other Laboratory Tests 04/23/25 00:59 04/21/25 08:47 Brief Hx & Hospital Course: here for left lower extremity cellulitis currently on IV antibiotics. informs RN he wants to leave ama. 55-year-old male presented to the hospital with a bilateral lower extremity foot pain found to have dx Sepsis due to below Left lower extremity cellulitis, improving Neutrophilia Leukocytosis likely reactive secondary to above Tachycardia Tachypnea Lactic acidosis, improved Chronic tobacco use disorder Intractable nausea and vomiting, plan: Patient was on p.o. Bactrim , waiting for patient to tolerate diet but he is unable to wait for physician to assess and proceed with discharge plan. Patient notified nursing also leave AMA, patient accepted all risks including . Patient left AMA Condition at Discharge: Undetermined Final Diagnosis/Problems List Sepsis due to below Left lower extremity cellulitis, improving Neutrophilia Leukocytosis likely reactive secondary to above Tachycardia Tachypnea Lactic acidosis, improved Chronic tobacco use disorder Intractable nausea and vomiting, Discharge Disposition: AMA Discharge Instruct/Medications Scheduled Atenolol (Atenolol), 1 TAB PO DAILY, (Reported) Discharge Statement: "Patient was advised to return to the ER or call 911 if any headaches, dizziness, shortness of breath, chest pain, abdominal pain, bleeding, fevers, or worsening of medical condition. Patient was counseled about treatment plan, medications, possible side effects, patientverbalized understanding. All questions were answered to the best of my ability. This discharge took greater then 30 minutes in planning, reviewing documentation, counseling the patient, and discussing with other team members." ASSESSMENT ASSESSMENT Assessment Date of Service: Apr 24, 2025 Billing Provider: TRINA DEJESUS MD Common Visit Codes: NOT BILLABLE TRINA DEJESUS MD Apr 24, 2025 15:03
== END 2025-04-24 10:30 | disposition left against medical advice (07) | DRG 720 ==
LOC: ER 23:22 → OVERFLOW 04-20 01:11 → WEST WING 04-20 07:50
PROVIDERS: ADMIT Student in an Organized Health Care Education/Training Program; ATTEND Student in an Organized Health Care Education/Training Program
DX: A41.9 Sepsis, unspecified organism (principal); E87.20 Acidosis, unspecified; L03.116 Cellulitis of left lower limb; I10 Essential (primary) hypertension; F17.200 Nicotine dependence, unspecified, uncomplicated; Z53.29 Procedure and treatment not carried out because of patient's decision for other reasons
CPT/HCPCS: 36415; 71045; 80048; 80053; 80202; 82565; 83605; 85025; 87040; 99291; G0378; J2405

== ENCOUNTER 2025-05-18 00:52 | Inpatient (IN) | payer MEDICAID ==
[~2025-05-18] VITALS: Ht 180.3 cm; Wt 72.7 kg
[~2025-05-18 00:52] MED LIST: ATEN25TA PO
--- NOTE | 2025-05-18 01:35 | ED.PDOC ---
Musculoskeletal HPI Comments PT CAME TO THE ER WITH CC OF RIGHT FOOT SWELLING, LESION AND PAIN X2DAYS. PT IS A&OX4 RR EVEN AND REGULAR NO DISTRESS NOTED AT THIS TIME. PT DENIES N/V/D CP SOB, FEVER, CHILLS, INJURY, NUMBNESS OR WEAKNESS. REPORTS HX OF HTN. DENIES HX OF CURRENT DRUG OR ALCOHOL ABUSE Chief Complaint: Lower Extremity Time Seen by MD: 01:03 Primary Care Provider: JAGDISH Reviewed Notes: Nurses Notes, Medications, Allergies Allergies: Coded Allergies: NO KNOWN ALLERGIES (Unverified , 04/19/23) Home Meds Reported Medications Atenolol (Atenolol) 25 Mg Tab, 1 TAB PO DAILY 04/23/25 Information Source: Patient Mode of Arrival: Ambulatory Past Medical History PAST MEDICAL HISTORY: HTN Surgical History: Denies all surgeries Family History Family History: Reviewed,noncontributory to illness Social History Smoker: Non-Smoker Alcohol: Denies ETOH Use Drugs: Methamphetamine Lives In: Other All Other Systems: Reviewed and Negative (SEE HPI) Physical Exam General Appearance: No Apparent Distress, Normal HEENT: Pharynx Normal Neck: Full Range of Motion, Non-Tender Respiratory: Lungs Clear, No Respiratory Distress, Normal Breath Sounds Cardiovascular: No Edema, No JVD, No Murmur, No Gallop, Normal Peripheral Pulses, Regular Rate/Rhythm Breast Exam: Deferred Gastrointestinal: No Organomegaly, Non Tender, No Pulsatile Mass, Normal Bowel Sounds, Soft Genitalia: Deferred Pelvic: Deferred Rectal: Deferred Extremities: Inflammation, Leg edema (PLUS TWO PITTING RIGHT FOOT, AND ANKLE), Normal capillary refill, Pedal edema, Tender (RIGHT FOOT ANKLE AND LOWER LEG) Musculoskeletal : Apperance: Normal Neurologic: Alert, print washer II-XII nml as Tested, No Motor Deficits, Normal Affect, Normal Mood, No Sensory Deficits Cerebellar Function: Normal Reflexes: Normal Skin: Dry, Normal Color, Warm, Wounds (MULTIPLE OPEN LESIONS DORSUM ASPECT OF RIGHT FOOT AND PLANTAR ASPECT NO NOTED DRAINAGE OR BLEEDING NOTED SURROUNDING ERYTHEMA AND EDEMA. MULTIPLE SCABBED OVER LESIONS RIGHT FOREARM NO NOTED DRAINAGE OR ERYTHEMA OR EDEMA) Lymphatic: No Adenopathy Was a procedure done? Was a procedure done?: No Differential Diagnosis EXT Differential Diagnosis: Cellulitis, Compartment Syndrome, Fracture, Sprain, Gout, Contusion, Strain X-Ray, Labs, Meds, VS Vital Signs Date Time Temp Pulse Resp B/P (MAP) Pulse Ox O2 Delivery O2 Flow Rate FiO2 05/18/25 00:57 97.5 102 20 151/94 96 97.5 Lab Test 05/18/25 01:44 Range/Units White Blood Count 10.9 H 4.4-10.8 10^3/uL Red Blood Count 4.11 L 4.5-5.90 10^6/uL Hemoglobin 12.2 L 13.5-17.5 g/dL Hematocrit 35.5 L 41.0-53.0 % Mean Corpuscular Volume 86.3 80.0-100.0 fL Mean Corpuscular Hemoglobin 29.6 28.0-32.0 pg Mean Corpuscular Hemoglobin Concent 34.3 32.0-36.0 g/dL Red Cell Distribution Width 14.7 H 11.8-14.3 % Platelet Count 290 140-450 10^3/uL Mean Platelet Volume 7.2 6.9-10.8 fL Neutrophils (%) (Auto) 73.8 37.0-80.0 % Lymphocytes (%) (Auto) 13.3 10.0-50.0 % Monocytes (%) (Auto) 9.5 0.0-12.0 % Eosinophils (%) (Auto) 2.9 0.0-7.0 % Basophils (%) (Auto) 0.5 0.0-2.0 % Neutrophils # (Auto) 8.0 1.6-8.6 10 ^3/uL Lymphocytes # (Auto) 1.5 0.4-5.4 10 ^3/uL Monocytes # (Auto) 1.0 0-1.3 10 ^3/uL Eosinophils # (Auto) 0.3 0-0.8 10 ^3/uL Basophils # (Auto) 0.1 0-0.2 10 ^3/uL Nucleated Red Blood Cells 0.3 % D-Dimer, Quantitative 0.51 H 0.0-0.49 mg/L FEU Sodium Level 139 136-145 mmol/L Potassium Level 4.0 3.5-5.1 mmol/L Chloride Level 101 98-107 mmol/L Carbon Dioxide Level 28 20-31 mmol/L Anion Gap 10 5-15 Blood Urea Nitrogen 9 9-23 mg/dL Creatinine 0.79 0.700-1.30 mg/dL Glomerular Filtration Rate Calc 104 >90 mL/min BUN/Creatinine Ratio 11.4 10.0-20.0 Serum Glucose 130 H 74-106 mg/dL Calcium Level 9.1 8.7-10.4 mg/dL Total Bilirubin 0.3 0.2-1.0 mg/dL Aspartate Amino Transferase (AST) 21 13-40 U/L Alanine Aminotransferase (ALT) 31 7-40 U/L Alkaline Phosphatase 91 46-116 U/L Total Protein 7.5 5.7-8.2 g/dL Albumin 4.2 3.2-4.8 g/dL Current Medications Medications (Trade) Dose Ordered Sig/Lowell Route Start Time Stop Time Status Last Admin Vancomycin HCl 250 ml @ 250 mls/hr ONCE ONCE IV 05/18/25 01:45 05/18/25 02:44 DC 05/18/25 02:13 X-Ray, Labs, Meds, VS Comment CBC WITH BUMP IN WBC 10.9. CMP ELEVATED GLUCOSE AT 130 NONFASTING. THE LIVER KIDNEY FUNCTION APPEARS WITHIN NORMAL LIMITS D-DIMER ELEVATED AT 0.51. RIGHT LOWER EXTREMITY ULTRASOUND ORDERED TO RULE OUT DVT BATCH DUMPER PAGED PENDING. Ultrasound right lower extremity Impression: 1. No right femoropopliteal venous thrombosis. 2. Prominent right inguinal lymph node measures up to 2.3 cm. WILL ADMIT FOR RIGHT LOWER EXTREMITY CELLULITIS IV ANTIBIOTICS. PATIENT IS STARTED ON VANCOMYCIN 1 G IV PIGGYBACK. Ultrasound negative for DVT of right lower extremity. Time of 1ST Reevaluation: 01:03 Reevaluation 1ST: Unchanged Time of 2ND Reevaluation: 03:33 Reevaluation 2ND: Improved Patient Education/Counseling: Diagnosis, Treatment, Need For Follow Up Family Education/Counseling: No Family Present Departure 1 Departure Time of Disposition: 03:33 Impression: Primary Impression: Cellulitis of right lower limb Disposition: 09 ADMITTED INPATIENT Condition: Stable Discharged With: Self Critical Care Note Critical Care Time?: No Stability Stability form required: SHIMON Farris May 18, 2025 01:35
[2025-05-18] MEDS: VANCOMYCIN 1GM/250ML KIT 250 ML IV ONE ×2 (02:13→13:31)
[2025-05-18 02:26] LABS: Hematocrit 35.5 % (41.0-53.0); Hemoglobin 12.2 g/dL (13.5-17.5); Mean Corpuscular Hemoglobin 29.6 pg (28.0-32.0); Mean Corpuscular Volume 86.3 fL (80.0-100.0); Nucleated Red Blood Cells % 0.3 %
[2025-05-18 02:42] LABS: Alanine Aminotransferase 31 U/L (7-40); Albumin 4.2 g/dL (3.2-4.8); Alkaline Phosphatase 91 U/L (46-116); Anion Gap 10 (5-15); BUN/Creatinine Ratio 11.4 (10.0-20.0); Blood Urea Nitrogen 9 mg/dL (9-23); Calcium 9.1 mg/dL (8.7-10.4); Carbon Dioxide 28 mmol/L (20-31); Chloride 101 mmol/L (98-107); Glucose 130 mg/dL (74-106); Potassium 4.0 mmol/L (3.5-5.1); Sodium 139 mmol/L (136-145); Total Protein 7.5 g/dL (5.7-8.2)
[2025-05-18 02:43] LABS: Bilirubin, Total 0.3 mg/dL (0.2-1.0)
--- NOTE | 2025-05-18 04:21 | DVH ---
Right lower extremity venous duplex Clinical History: POSITIVE D-DIMER. RIGHT FOOT, ANKLE EDEMA, ERYTHEMA Comparison: None Technique: Duplex Doppler evaluation of the deep venous system of the right lower extremity from the common femo ral vein to the popliteal vein including color Doppler and spectral/pulsed waveform analysis was perf ormed. Findings: The common femoral vein demonstrates appropriate compressibility and waveform variability. There is compressibility/patency of the great saphenous vein at the proximal thigh. The femoral vein demonstrates appropriate compressibility and waveform variability. The deep femoral vein demonstrates appropriate compressibility and waveform variability. The popliteal vein demonstrates appropriate compressibility and waveform variability. There is normal compressibility at the tibioperoneal trunk. Prominent right inguinal lymph node measures up to 2.3 cm. Impression: 1. No right femoropopliteal venous thrombosis. 2. Prominent right inguinal lymph node measures up to 2.3 cm.
[2025-05-18] MEDS ORDERED: VANCOMYCIN PER PHARMACY 0 MG IV SCH (06:45)
[2025-05-18] MEDS ORDERED: MORPHINE SULFATE INJ 2 MG/ml SYRG IV PRN (06:45)
--- NOTE | 2025-05-18 06:46 | DVHHPRES ---
History of Present Illness Resident Creating Document: NADINE FRANCES History of Present Illness Temo Zheng is a 55-year-old male patient who presents to the ED with chief complaint of nonhealing right foot wound which started two days before his admission, associated with right upper limb weakness. Patient has had multiple episodes of cellulitis, per patient 1st episode was 20 years ago and he has been having every year repeated events of cellulitis, last time he received IV antibiotics with vancomycin due to cellulitis secondary to MRSA. 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 He never completed cardiac surgery. He follows with his primary care physician who is Dr. Arce, in Dr. Dilan Arce is his infectious disease doctor. Denies any other associated symptoms Past medical history: Hypertension, multiple episodes of cellulitis, infective endocarditis, osteomyelitis status post elbow surgery. Surgical history: Left elbow surgery Family history: Noncontributory Social history: Lives in [place] with girlfriend (next of kin). Current smoker (five cigarettes for the past five years, total of 1 pack-year history of smoking). Fentanyl abuse (last time on 05/17/2025. Denies current alcohol and other drug abuse Allergies: Nevarez we had Home medication: Lisinopril Patient seen and examined at bedside. Currently has no new complaints. Patient will be admitted for further evaluation Past Medical History Per HPI Past Surgical History Per HPI Family History Per HPI Past Social History Per HPI Review of Systems Review of Systems Per HPI Allergies: Coded Allergies: NO KNOWN ALLERGIES (Unverified , 04/19/23) Medications Current Medications Medications Dose Ordered Sig/[place]ell Route Start Time Stop Time Status Last Admin Dose Admin Acetaminophen 325 mg Q4HP PRN PO 05/18/25 06:45 Morphine Sulfate 2 mg Q4HPRN PRN IV 05/18/25 06:45 Enoxaparin Sodium 40 mg DAILY SC 05/18/25 10:00 Meropenem 50 ml @ 17 mls/hr Q8HR IV 05/18/25 14:00 UNV Vancomycin HCl 0 ml @ 0 mls/hr UD IV 05/18/25 06:45 UNV Exam Vital Signs Vital Signs Date Time Temp Pulse Resp B/P (MAP) Pulse Ox O2 Delivery O2 Flow Rate FiO2 05/18/25 00:57 97.5 102 20 151/94 96 97.5 Exam Patient lying in bed, in no acute distress General: Lucid, afebrile, mucosae are dry Cardiovascular: Tachycardia S1 and S2. Holosystolic murmur best heard in apex that radiates towards axilla intensity 2/6. No gallops or rubs Respiratory: Normal ventilation mechanics. Clear lung sounds on auscultation Abdomen: Soft, nontender, no organomegaly, normal bowel sounds MSK/skin: Mobilizes 4 limbs. Skin is dry and warm. Multiple subcutaneous nodules mainly present in upper arms. Right leg infrapatellar pitting edema, associated with erythema, nonhealing ulcer on dorsum of right foot, associated purulent secretion. Neurological: Oriented in 3 spheres. No motor no sensitive deficits. Pupils are isocoric and reactive Labs/Xrays Labs Test 05/18/25 01:44 Range/Units White Blood Count 10.9 H 4.4-10.8 10^3/uL Red Blood Count 4.11 L 4.5-5.90 10^6/uL Hemoglobin 12.2 L 13.5-17.5 g/dL Hematocrit 35.5 L 41.0-53.0 % Mean Corpuscular Volume 86.3 80.0-100.0 fL Mean Corpuscular Hemoglobin 29.6 28.0-32.0 pg Mean Corpuscular Hemoglobin Concent 34.3 32.0-36.0 g/dL Red Cell Distribution Width 14.7 H 11.8-14.3 % Platelet Count 290 140-450 10^3/uL Mean Platelet Volume 7.2 6.9-10.8 fL Neutrophils (%) (Auto) 73.8 37.0-80.0 % Lymphocytes (%) (Auto) 13.3 10.0-50.0 % Monocytes (%) (Auto) 9.5 0.0-12.0 % Eosinophils (%) (Auto) 2.9 0.0-7.0 % Basophils (%) (Auto) 0.5 0.0-2.0 % Neutrophils # (Auto) 8.0 1.6-8.6 10 ^3/uL Lymphocytes # (Auto) 1.5 0.4-5.4 10 ^3/uL Monocytes # (Auto) 1.0 0-1.3 10 ^3/uL Eosinophils # (Auto) 0.3 0-0.8 10 ^3/uL Basophils # (Auto) 0.1 0-0.2 10 ^3/uL Nucleated Red Blood Cells 0.3 % D-Dimer, Quantitative 0.51 H 0.0-0.49 mg/L FEU Sodium Level 139 136-145 mmol/L Potassium Level 4.0 3.5-5.1 mmol/L Chloride Level 101 98-107 mmol/L Carbon Dioxide Level 28 20-31 mmol/L Anion Gap 10 5-15 Blood Urea Nitrogen 9 9-23 mg/dL Creatinine 0.79 0.700-1.30 mg/dL Glomerular Filtration Rate Calc 104 >90 mL/min BUN/Creatinine Ratio 11.4 10.0-20.0 Serum Glucose 130 H 74-106 mg/dL Calcium Level 9.1 8.7-10.4 mg/dL Total Bilirubin 0.3 0.2-1.0 mg/dL Aspartate Amino Transferase (AST) 21 13-40 U/L Alanine Aminotransferase (ALT) 31 7-40 U/L Alkaline Phosphatase 91 46-116 U/L Total Protein 7.5 5.7-8.2 g/dL Albumin 4.2 3.2-4.8 g/dL SEPSIS Sepsis Screen Date sepsis recognized/suspect: May 18, 2025 Time Sepsis recognized/suspect: 0100 Recent Procedure: No On Antibiotic Therapy: No Respiratory Rate >20: No Heart Rate >90: No Temp<36 C (96.8 F) or >38.3 C: No SBP <90 or MAP <65 mmHG: No New Acute Mental Status Change: No Is the patient on CPAP, BIPAP,: No Physician Orders Blood Culture (05/18/25 01:39) Heplock Iv (05/18/25 ) Rt Lower Dvt (05/18/25 03:05) Admit (05/18/25 06:33) Code Status (05/18/25 06:33) Acetaminophen Tablet (Tylenol Tablet) (05/18/25 06:45) Cardiac Diet-2gna,Lofat,Lochol (05/18/25 Breakfast) Echo 2d Mode Cardiac Dop (05/18/25 06:33) Morphine Sulfate Injection (05/18/25 06:45) Enoxaparin Sodium (Lovenox) (05/18/25 10:00) Oxygen By Nasal Cannula (05/18/25 06:33) Stat Ekg For Chest Pain (05/18/25 06:33) Notify Md Of Changes From Base (05/18/25 06:33) Wheelabrator Operator For 24 Hours (05/18/25 06:33) Emergency Dysrhythmia Protocol (05/18/25 06:33) Rhythm Strips Once Every Shift (05/18/25 06:33) Urine Bacterial Culture (05/18/25 06:33) Respiratory Culture W/ Gs (05/18/25:33) Electrocardigram (05/18/25 06:33) Vitamin D, 25-Hydroxy (05/18/25 06:33) Vitamin B12 (05/18/25 06:33) Urinalysis (05/18/25:) Thyroid Stimulating Hormone (05/18/25:33) PTPTT (05/18/25 06:33) Phosphorus (05/18/25 06:33) Magnesium (05/18/25 06:33) Lipid Panel (05/18/25:33) Lactic Acid W/ Reflex Order (05/18/25 06:33) Hemoglobin A1c (05/18/25 06:33) Drug Screen (05/18/25 06:33) Lipase (05/18/25 06:33) Comprehensive Metabolic Panel (05/18/25 06:33) Complete Blood Count (05/18/25 06:33) * Cardiology Consult (05/18/25 06:33) Chest Xray 1 View (05/18/25 06:38) Meropenem 1gm Ivpb (Merrem 1gm/50ml) (05/18/25 14:00) Vancomycin 1gm/250ml Kit (05/18/25 06:45) Vancomycin Per Pharmacy (05/18/25 06:45) Head Without Contrast (05/18/25 06:38) Ct Ab Pelvis W Wo Con-Iv Only (05/18/25 06:38) * Infectious [facility]- Dr. Hien Arce (05/18/25 06:38) Vital Signs Date Time Temp Pulse Resp B/P (MAP) Pulse Ox O2 Delivery O2 Flow Rate FiO2 05/18/25 00:57 97.5 102 20 151/94 96 97.5 Laboratory Tests Test 05/18/25 01:44 White Blood Count 10.9 10^3/uL (4.4-10.8) H Medications Medications Dose Ordered Sig/Lowell Route Start Time Stop Time Status Last Admin Dose Admin Vancomycin HCl 250 ml @ 250 mls/hr ONCE ONCE IV 05/18/25 01:45 05/18/25 02:44 DC 05/18/25 02:13 250 MLS/HR Assessment/Plan Assessment/Plan Sepsis secondary to cellulitis of right foot Rule out active infective endocarditis Rule out septic emboli Rule out CVA History of osteomyelitis of right elbow status postop Patient admitted to telemetry Currently under empiric IV antibiotic (vancomycin and meropenem) Obtain neff cultures (blood, urine, sputum and wound) Ordered head CT and abdomen/pelvis CT with contrast to rule out septic emboli Consulted infectious disease (Dr. Dilan Arce) Consulted wound care Consulted Podiatry Ordered right foot CT to rule out osteomyelitis Ordered echocardiogram and EKG. Eventually we will order Cardiology consult for NOEMI. Ruled out right lower limb DVT Ruled out PAD Completed ultrasound of lower limb which showed no DVT, presents prominent inguinal lymph node and measures 2.3 cm Ordered bilateral lower limb duplex arterial ultrasound Polysubstance abuse Patient currently consumes tobacco (one pack-year history of smoking) and fentanyl (last time consumed was morning of 05/17/2025) Counseled strongly on cessation for over 16 minutes. Questionable morbid obesity Per EMR BMI is 49.6 Phenotypically patient is not morbidly obese. Suggest nursing to weigh patient once again. Hypertension Home medication lisinopril Currently discontinued due to sepsis which can worsened. Gave advice on healthy lifestyle habits Goals of care discussed with patient for over 18 minutes: Full code status Discussed plan with Dr. Hernandez, patient and nurses: We will admit to telemetry. Currently under empiric IV antibiotic (vancomycin and meropenem), ordered neff cultures. Ordered multiple imaging to rule out septic emboli and evaluate presence of infective endocarditis. Consulted Podiatry, Wound Care and Infectious Disease. Eventually we will consult Cardiology for NOEMI if necessary. Patient has poor prognosis. Plan discussed with: Patient, Other (Nurses) My Orders Orders - NADINE FRANCES RESIDENT Procedure Category Date Status Time Admit ADMIT 05/18/25 Transmitted 06:33 Code Status CODE 05/18/25 Transmitted 06:33 Acetaminophen Tablet PHA 05/18/25 In Process (Tylenol Tablet) 06:45 Cardiac DIET 05/18/25 Transmitted Diet-2gna,Lofat,Lochol Breakfast Echo 2d Mode Cardiac US 05/18/25 Logged DOP 06:33 Morphine Sulfate PHA 05/18/25 In Process Injection 06:45 Enoxaparin Sodium PHA 05/18/25 In Process (Lovenox) 10:00 Oxygen By Nasal RT 05/18/25 Transmitted Cannula 06:33 Stat Ekg For Chest [facility] 05/18/25 In Process Pain 06:33 Notify Of Changes [facility] 05/18/25 In Process From Base 06:33 Wheelabrator Operator For [facility] 05/18/25 In Process 24 Hours 06:33 Emergency Dysrhythmia [facility] 05/18/25 In Process Protocol 06:33 Rhythm Strips Once [facility] 05/18/25 In Process Every Shift 06:33 Urine Bacterial [facility] 05/18/25 Logged Culture 06:33 Respiratory Culture [facility] 05/18/25 Logged W/ Gs 06:33 Electrocardigram EKG 05/18/25 Logged 06:33 Vitamin D, 25-Hydroxy LAB 05/18/25 Logged 06:33 Vitamin B12 LAB 05/18/25 Logged 06:33 Urinalysis LAB 05/18/25 Logged 06:33 Thyroid Stimulating LAB 05/18/25 Logged Hormone 06:33 PTPTT LAB 05/18/25 Logged 06:33 Phosphorus LAB 05/18/25 Logged 06:33 Magnesium LAB 05/18/25 Logged 06:33 Lipid Panel LAB 05/18/25 Logged 06:33 Lactic Acid W/ Reflex LAB 05/18/25 Logged Order 06:33 Hemoglobin A1c LAB 05/18/25 Logged 06:33 Drug Screen LAB 05/18/25 Logged 06:33 Lipase LAB 05/18/25 Logged 06:33 Comprehensive LAB 05/18/25 Logged Metabolic Panel 06:33 Complete Blood Count LAB 05/18/25 Logged 06:33 * Cardiology Consult CONS 05/18/25 Transmitted 06:33 Chest Xray 1 View XY 05/18/25 Logged 06:38 Meropenem 1gm Ivpb PHA 05/18/25 Logged (Merrem 1gm/50ml) 14:00 Vancomycin 1gm/250ml PHA 05/18/25 Logged Kit 06:45 Vancomycin Per PHA 05/18/25 Logged Pharmacy 06:[address] 05/18/25 Transmitted 06:38 Ct Ab Pelvis W Wo CT 05/18/25 Logged Con-Iv Only 06:38 * Infectious [facility]- Dr. YEAGER 05/18/25 Transmitted Hien Arce 06:38 Date of Service: May 18, 2025 Billing Provider: NADINE FRANCES Common Visit Codes: [id number] INP/OBS CARE (HIGH) Secondary Visit Codes: [id number] CARE PLAN 30 MINUTES NADINE FRANCES RESIDENT May 18, 2025 06:46
--- NOTE | 2025-05-18 07:53 | DVH ---
CLINICAL INFORMATION: Rule out septic emboli. History of endocarditis. TECHNIQUE: Axial imaging was obtained through the brain without contrast. Coronal and sagittal reform atted images were obtained, reviewed, and stored. Images were reviewed in brain and bone windows. Al l CT scans at this medical facility are performed using dose modulation techniques as appropriate to a performed exam including the following: Automated exposure control was utilized; adjustment of the MA and/or KV according to patient size; and use of iterative reconstruction technique. CTDIvol = 52.6 9 mGy DLP = 844.82 mGy-cm COMPARISON: None FINDINGS: There is no acute intracranial hemorrhage. No mass effect or midline shift. The ventricles and sulci are within normal limits in size for age. Basal cisterns are patent. The calvarium is unre markable. Mild mucosal thickening of the paranasal sinuses. IMPRESSION: No evidence of acute intracranial abnormality identified on noncontrast enhanced CT. If there is clin ical concern for septic emboli, MRI brain without and with contrast would be more sensitive.
--- NOTE | 2025-05-18 07:57 | DVH ---
CHEST RADIOGRAPH Indication: History of infective endocarditis Technique: Single frontal view of the chest was obtained COMPARISON: XY CHEST PORTABLE on DOS: 04/20/25, CHEST PORTABLE on DOS: 09/09/22, CXRP on DOS: 09/09/22 FINDINGS: Lines and Tubes: None Lungs: Congestion Pleura: No effusion. No pneumothorax. Cardiomediastinal contours: Cardiomegaly Bones: Unremarkable IMPRESSION: Increased interstital prominence. This may represent pulmonary vascular congestion and/or viral pneum onia. Clinical correlation advised.
[2025-05-18 08:04] LABS: Hematocrit 35.4 % (41.0-53.0); Hemoglobin 12.0 g/dL (13.5-17.5); Mean Corpuscular Hemoglobin 29.2 pg (28.0-32.0); Mean Corpuscular Volume 85.8 fL (80.0-100.0); Nucleated Red Blood Cells % 0.0 %
[2025-05-18 08:21] LABS: INR 1.02 (0.9-1.15); Partial Thromboplastin Time 25.5 SEC (24.5-34.5); Prothrombin Time 10.8 sec (9.3-11.8)
[2025-05-18 08:25] LABS: Alanine Aminotransferase 29 U/L (7-40); Albumin 4.1 g/dL (3.2-4.8); Alkaline Phosphatase 92 U/L (46-116); Anion Gap 10 (5-15); BUN/Creatinine Ratio 15.8 (10.0-20.0); Blood Urea Nitrogen 12 mg/dL (9-23); Calcium 8.8 mg/dL (8.7-10.4); Carbon Dioxide 28 mmol/L (20-31); Chloride 98 mmol/L (98-107); Cholesterol 101 mg/dL (< 200); HDL Cholesterol 43 mg/dL (40-59); Magnesium 1.7 mg/dL (1.6-2.6); Sodium 136 mmol/L (136-145); Total Protein 7.3 g/dL (5.7-8.2); Triglycerides 47 mg/dL (< 150)
[2025-05-18 08:26] LABS: Bilirubin, Total 0.9 mg/dL (0.2-1.0)
[2025-05-18 08:30] LABS: Glucose 157 mg/dL (74-106); Potassium 3.3 mmol/L (3.5-5.1)
[2025-05-18 08:48] LABS: Lipase 22 U/L (12-53)
--- NOTE | 2025-05-18 10:59 | DVH ---
CLINICAL HISTORY: POSSIBLE SEPTIC EMBOLI TECHNIQUE: CT of the abdomen and pelvis was performed with IV contrast. This exam was performed accor ding to our departmental dose optimization program. Up-to-date CT equipment and radiation dose reduct ion techniques are utilized as appropriate. CTDI 7.5 DLP 353 COMPARISON: None FINDINGS: Abdomen/Pelvis: The spleen, pancreas, liver, gallbladder, adrenal glands, left kidney, bladder, and prostate gland ar e unremarkable. There is a 9 mm distal right ureteral calculus resulting in severe hydronephrosis and moderate hydrou reter. The abdominal aorta is normal in course and caliber. There are mild atherosclerotic changes. The nadege ac, superior mesenteric, bilateral renal, and inferior mesenteric arteries are patent with no signifi cant stenosis. The large branches of the abdominal aorta are patent with no significant stenosis. There is no free intraperitoneal air or fluid. There is no enlarged abdominal or pelvic lymph node. There is no bowel wall thickening or dilatation. The appendix is normal. There is a moderate to large amount of stool in the colon. Other: The imaged lower thorax is unremarkable. No acute osseous abnormality is evident. IMPRESSION: 9 mm distal right ureteral calculus resulting in moderate hydroureter and severe hydronephrosis.
[2025-05-18] MEDS: IOHEXOL 350 MG/ML 100ML IJ ONE ×2 (13:17)
[2025-05-18] MEDS: SODIUM CHLORIDE 0.9% 1,000 ML IV SCH (13:29)
[2025-05-18] MEDS: ENOXAPARIN SOD 40 MG/0.4 ML SYRINGE SC SCH (13:30)
[2025-05-18] MEDS: VANCOMYCIN 1.25GM/250ML 250 ML IV SCH (13:31)
--- NOTE | 2025-05-18 13:50 | DVH ---
EXAM: CT CT R FOOT WO CONTRAST INDICATION: Rule out osteomyelitis of right foot TECHNIQUE: Axial images of right foot without contrast have been obtained along with coronal and sagi ttal reformatted images. All CT scans at this facility use dose modulation, iterative reconstruction, and/or weight based dosing when appropriate to reduce radiation dose to as low as reasonably achieva ble. COMPARISON: None FINDINGS: BONES: No CT evidence of an acute fracture or aggressive osseous lesion. Well corticated ossicles inf erior to the lateral malleolus compatible with prior avulsive injury. Minimal asymmetric degenerative change of the 1st metatarsophalangeal joint. No abnormal osseous erosion, lucency, sclerosis to sugg est osteomyelitis. MUSCLES: No abnormal attenuation. JOINT SPACES: No joint effusion. TENDONS/LIGAMENTS: Intact. OTHER: Lateral malleolar greater than medial malleolar soft tissue swelling. No visualized drainable fluid collection IMPRESSION: 1. No CT evidence of osteomyelitis. 2. Lateral malleolar greater than medial malleolar soft tissue swelling.
--- NOTE | 2025-05-18 13:51 | DVHPNRES ---
Progress Note Date Seen: May 18, 2025 Resident Creating Document: JL BLANCHARD RESIDENT Medical Necessity Reason Pt with a Central, PICC or Fol: No Subjective Review of Systems Patient seen and examined in ER Complaining of right foot swelling and erythema. Patient admitted he tried fentanyl a day before Denying complaint of shortness of breath, fever, chills, chest pain, urinary symptoms No any other new complaint Objective vital signs Vital Sign Date Time Temp Pulse Resp B/P (MAP) Pulse Ox O2 Delivery O2 Flow Rate FiO2 05/18/25 09:42 98.8 89 18 137/89 (105) 95 98.8 medications Current Medications Medications Dose Ordered Sig/[place]ell Route Start Time Stop Time Status Last Admin Dose Admin Acetaminophen 325 mg Q4HP PRN PO 05/18/25 06:45 Morphine Sulfate 2 mg Q4HPRN PRN IV 05/18/25 06:45 Enoxaparin Sodium 40 mg DAILY SC 05/18/25 10:00 05/18/25 13:30 40 MG Meropenem 50 ml @ 17 mls/hr Q8HR IV 05/18/25 14:00 Vancomycin HCl 0 ml @ 0 mls/hr UD IV 05/18/25 06:45 Sodium Chloride 1,000 ml @ 75 mls/hr [id number] IV 05/18/25 11:00 05/18/25 13:29 75 MLS/HR Vancomycin HCl 250 ml @ 200 mls/hr Q8H IV 05/18/25 11:00 05/18/25 13:31 200 MLS/HR Tamsulosin HCl 0.4 mg QPM PO 05/18/25 18:00 UNV Examination General Appearance: Cooperative. Well developed. Well nourished. NAD Head Exam: Normal inspection Neck Exam: Normal inspection. Non-tender. Normal alignment Pulmonary/Respiratory: Chest non-tender. Clear bilateral breath sounds Cardiovascular/Chest: Regular rate and rhythm. No murmurs. No JVD. Peripheral Pulses: 2+ Radial (R). 2+ Radial (L). 2+ Pedal (R). 2+ Pedal (L) Abdominal Exam: Normal bowel sounds. Soft. Nontender. No hepatospenomegaly. No masses Ankle Exam: Negative ankle edema Lower extremities: Right foot edema associated with erythema, nonhealing multiple ulcers over the dorsum of right foot, associated with mild yellowish discharge. No motor or sensory deficits. Neuro/Mental Status: A&O x4. Coherent Thoughts/Psych: Normal thought pattern. Appropriate mood and affect. Good judgement and insight Appearance: In no acute distress Skin Exam: Normal inspection. Normal color. Warm. Dry laboratory and microbiology Laboratory Tests 05/18/25 07:53 Test 05/18/25 07:53 Range/Units Serum Glucose 157 H 74-106 mg/dL Problem List/Assessment/Plan Problem List/Assessment/Plan Sepsis secondary to cellulitis of right foot Rule out active infective endocarditis Rule out septic emboli Rule out CVA History of osteomyelitis of right elbow status postop -Currently under empiric IV antibiotic (vancomycin and meropenem) -Pending blood, urine, sputum and wound -Consulted infectious disease (Dr. Dilan Arce) -Consulted wound care -Consulted Podiatry -Pending echocardiogram and EKG. -Eventually we will order Cardiology consult for NOEMI. -EKG pending Right ureteral nephrolithiasis with severe hydronephrosis and moderate hydroureter -CT abdomen pelvis: 9 mm distal right ureteral calculus resulting in moderate hydroureter and severe hydronephrosis. -urology consultation: Ultrasound with retroperitoneal ureteral jetting -tamsulosin 0.4 mg p.o. daily -urine culture pending. Sepsis due to right lower extremity cellulitis , ? Infective endocarditis, history of right elbow osteomyelitis -IV antibiotic with meropenem and vancomycin -WBC count 13, with neutrophil shift at 95.8%. -pending blood culture, wound culture. -right foot CT: Lateral malleolar greater than medial malleolar soft tissue swelling. Ruled out right lower limb DVT Ruled out PAD -Completed ultrasound of lower limb which showed no DVT, presents prominent inguinal lymph node and measures 2.3 cm -Bilateral lower extremity arterial ultrasound:1. No evidence of arterial occlusion or significant stenosis in either lower extremity. 2. No findings are seen to suggest significant peripheral arterial disease. Polysubstance abuse -Patient currently consumes tobacco (one pack-year history of smoking) and fentanyl (last time consumed was morning of 05/17/2025) -Counseled strongly on cessation for over 16 minutes. Hypertension -Home medication lisinopril -Currently discontinued due to sepsis which can worsened. -Gave advice on healthy lifestyle habits Low TSH ? Hyperthyroidism -TSH 0.47, pending free T4, free T3. Prediabetic HGB A1c 5.8% on 05/18/2025 -lifestyle modification, low-carbohydrate index diet, regular exercise. Hypokalemia -replenish potassium DVT prophylaxis with Lovenox PUD prophylaxis with famotidine Goals of care discussed with patient for over 18 minutes: Full code status Plan discussed with Dr. Hernandez Plan discussed with: Patient, Other My Orders My Orders Orders - JL BLANCHARD Procedure Category Date Status Time Free T3 LAB 05/18/25 In Process 08:36 Free T4 (Free LAB 05/18/25 In Process Thyroxine) 08:36 * Urology Consult CONS 05/18/25 Transmitted 13:44 Tamsulosin PHA 05/18/25 Logged Hydrochloride (Flomax) 18:00 JL BLANCHARD RESIDENT May 18, 2025 13:51
--- NOTE | 2025-05-18 15:34 | DVH ---
CLINICAL HISTORY: Rule out peripheral arterial disease. TECHNIQUE: Bilateral lower extremity arterial duplex exam was performed. Grayscale, color Doppler, an d spectral waveform analysis was performed. COMPARISON: US RT LOWER DVT on DOS: 05/18/25 FINDINGS: Right Lower Extremity: Scattered mild atherosclerotic plaque. No focal stenosis or occlusion visualiz ed. Triphasic waveforms are seen throughout the right lower extremity. Left Lower Extremity: Scattered mild atherosclerotic plaque. No focal stenosis or occlusion visualize d. Triphasic waveforms are seen throughout the left lower extremity. EXAMINATION DATA: RIGHT PSV (cm/sec) DEICER REPAIRER 82 Profunda 69 SFA Prox 103 SFA Mid 74 SFA Dist 57 POP A 82 BUFFET ATTENDANT 117 DPA 62 LEFT PSV (cm/sec) DEICER REPAIRER 106 Profunda 94 SFA Prox 110 SFA Mid 94 SFA Dist 96 POP A 72 BUFFET ATTENDANT 82 DPA 49 IMPRESSION: 1. No evidence of arterial occlusion or significant stenosis in either lower extremity. 2. No findings are seen to suggest significant peripheral arterial disease.
--- NOTE | 2025-05-18 17:37 | DVHINCON2 ---
Date of service: May 18, 2025 Referring Physician Hospitalist Reason for Consultation 9 mm right distal ureteral stone with moderate hydronephrosis. Normal renal function. History of Present Illness 55-year-old male patient who presents to the ED with chief complaint of nonhealing right foot wound which started two days before his admission, associated with right upper limb weakness. Patient has had multiple episodes of cellulitis, per patient 1st episode was 20 years ago and he has been having every year repeated events of cellulitis, last time he received IV antibiotics with vancomycin due to cellulitis secondary to MRSA. 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 He never completed cardiac surgery. He follows with his primary care physician who is Dr. Arce, in Dr. Dilan Arce is his infectious disease doctor. Denies any other associated symptoms During evaluation for septic emboli, CT Scan with IV contrast reports a "9 mm right distal ureteral stone" with moderate hydronephrosis. Past Medical History Hypertension, multiple episodes of cellulitis, infective endocarditis, osteomy elitis status post elbow surgery. Past Surgical History Left elbow surgery Family History: Family history: Diabetes mellitus Allergies: Coded Allergies: NO KNOWN ALLERGIES (Unverified , 04/19/23) Home Meds Reported Medications Atenolol (Atenolol) 25 Mg Tab, 1 TAB PO DAILY 04/23/25 Current Medications Current Medications Medications (Trade) Dose Ordered Sig/[place] Route PRN Reason Start Time Stop Time Status Last Admin Acetaminophen (Tylenol Tablet) 325 mg Q4HP PRN PO MILD PAIN (1-3 PAIN SCALE) 05/18/25 06:45 Morphine Sulfate 2 mg Q4HPRN PRN IV SEVERE PAIN (7-10 PAIN SCALE) 05/18/25 06:45 Enoxaparin Sodium (Lovenox) 40 mg DAILY SC 05/18/25 10:05/18/25 13:30 Meropenem 50 ml @ 17 mls/hr Q8HR IV 05/18/25 14:00 Vancomycin HCl 0 ml @ 0 mls/hr UD IV 05/18/25 06:45 Sodium Chloride 1,000 ml @ 75 mls/hr [id number] IV 05/18/25 11:00 05/18/25 13:29 Vancomycin HCl 250 ml @ 200 mls/hr Q8H IV 05/18/25 11:00 05/18/25 13:31 Tamsulosin HCl (Flomax) 0.4 mg QPM PO 05/18/25 18:00 Review of Systems Per HPI Vital Signs Vital Signs Date Time Temp Pulse Resp B/P (MAP) Pulse Ox O2 Delivery O2 Flow Rate FiO2 05/18/25 17:15 71 18 105/73 (84) 98 05/18/25 14:30 98.3 98.3 Physical Exam Vital Signs Date Time Temp Pulse Resp B/P (MAP) Pulse Ox O2 Delivery O2 Flow Rate FiO2 05/18/25 00:57 97.5 102 20 151/94 96 97.5 Exam Patient lying in bed, in no acute distress General: Lucid, afebrile, mucosae are dry Cardiovascular: Tachycardia S1 and S2. Holosystolic murmur best heard in apex that radiates towards axilla intensity 2/6. No gallops or rubs Respiratory: Normal ventilation mechanics. Clear lung sounds on auscultation Abdomen: Soft, nontender, no organomegaly, normal bowel sounds MSK/skin: Mobilizes 4 limbs. Skin is dry and warm. Multiple subcutaneous nodules mainly present in upper arms. Right leg infrapatellar pitting edema, associated with erythema, nonhealing ulcer on dorsum of right foot, associated purulent secretion. Neurological: Oriented in 3 spheres. No motor no sensitive deficits. Pupils are isocoric and reactive Labs/Diagnostic Data Labs Test 05/18/25 07:53 05/18/25 01:44 Range/Units White Blood Count 13.0 H 4.4-10.8 10^3/uL Red Blood Count 4.12 L 4.5-5.90 10^6/uL Hemoglobin 12.0 L 13.5-17.5 g/dL Hematocrit 35.4 L 41.0-53.0 % Mean Corpuscular Volume 85.8 80.0-100.0 fL Mean Corpuscular Hemoglobin 29.2 28.0-32.0 pg Mean Corpuscular Hemoglobin Concent 34.0 32.0-36.0 g/dL Red Cell Distribution Width 14.4 H 11.8-14.3 % Platelet Count 232 140-450 10^3/uL Mean Platelet Volume 6.6 L 6.9-10.8 fL Neutrophils (%) (Auto) 95.8 H 37.0-80.0 % Lymphocytes (%) (Auto) 2.2 L 10.0-50.0 % Monocytes (%) (Auto) 1.7 0.0-12.0 % Eosinophils (%) (Auto) 0.2 0.0-7.0 % Basophils (%) (Auto) 0.1 0.0-2.0 % Neutrophils # (Auto) 12.4 H 1.6-8.6 10 ^3/uL Lymphocytes # (Auto) 0.3 L 0.4-5.4 10 ^3/uL Monocytes # (Auto) 0.2 0-1.3 10 ^3/uL Eosinophils # (Auto) 0 0-0.8 10 ^3/uL Basophils # (Auto) 0 0-0.2 10 ^3/uL Nucleated Red Blood Cells 0.0 % Prothrombin Time 10.8 9.3-11.8 sec Prothrombin Time INR 1.02 0.9-1.15 Activated Partial Thromboplast Time 25.5 24.5-34.5 SEC Sodium Level 136 136-145 mmol/L Potassium Level 3.3 L 3.5-5.1 mmol/L Chloride Level 98 98-107 mmol/L Carbon Dioxide Level 28 20-31 mmol/L Anion Gap 10 5-15 Blood Urea Nitrogen 12 9-23 mg/dL Creatinine 0.76 0.700-1.30 mg/dL Glomerular Filtration Rate Calc 105 >90 mL/min BUN/Creatinine Ratio 15.8 10.0-20.0 Serum Glucose 157 H 74-106 mg/dL Hemoglobin A1c 5.8 H <5.7 % A1C Lactic Acid Level 1.2 0.4-2.0 mmol/L Calcium Level 8.8 8.7-10.4 mg/dL Phosphorus Level 2.3 L 2.4-5.1 mg/dL Magnesium Level 1.7 1.6-2.6 mg/dL Total Bilirubin 0.9 0.2-1.0 mg/dL Aspartate Amino Transferase (AST) 25 13-40 U/L Alanine Aminotransferase (ALT) 29 7-40 U/L Alkaline Phosphatase 92 46-116 U/L Total Protein 7.3 5.7-8.2 g/dL Albumin 4.1 3.2-4.8 g/dL Triglycerides Level 47 < 150 mg/dL Cholesterol Level 101 < 200 mg/dL LDL Cholesterol 53 < 100 mg/dL HDL Cholesterol 43 40-59 mg/dL Lipase 22 12-53 U/L Vitamin B12 Level 433 211-911 pg/mL Vitamin D 25-Hydroxy 46.6 30.0-100 ng/mL Thyroid Stimulating Hormone (TSH) 0.47 L 0.55-4.78 uIU/mL D-Dimer, Quantitative 0.51 H 0.0-0.49 mg/L FEU Assessment Right hydronephrosis Right distal ureteral stone Plan/Recommendation Retroperitoneal US to look for right ureteral jetting Plan discussed with: Patient, Other HECTOR PARK MD May 18, 2025 17:37
[2025-05-18] MEDS: POTASSIUM CHL 20 Meq TABLET PO ONE (17:54)
[2025-05-18] MEDS: TAMSULOSIN HYDROCHLORIDE 0.4 MG CAP PO SCH (19:19)
--- NOTE | 2025-05-18 20:37 | DVH ---
RENAL ULTRASOUND CLINICAL HISTORY: Right hydronephrosis TECHNIQUE: Multiple grayscale ultrasound images were obtained through the kidneys and urinary bladder . COMPARISON: None FINDINGS: Right kidney: Measures 11.9 cm. Gljv-[id number] hydronephrosis. Left kidney: Measures 11.6 cm. No hydronephrosis. Urinary bladder: Unremarkable. Prevoid volume is 556.6 mL IMPRESSION: 1. [id number] right hydronephrosis. 2. No left hydronephrosis.
[2025-05-18] MEDS: MEROPENEM 1GM IVPB 50 ML IV SCH (21:43)
[2025-05-19] MEDS: ACETAMINOPHEN 325 MG TAB PO PRN (03:59)
[2025-05-19 05:00] VITALS: BP 157/90; PULSE 95; RESP 19; O2SAT 96
[2025-05-19 06:08] LABS: Hematocrit 34.1 % (41.0-53.0); Hemoglobin 12.0 g/dL (13.5-17.5); Mean Corpuscular Hemoglobin 30.2 pg (28.0-32.0); Mean Corpuscular Volume 85.7 fL (80.0-100.0); Nucleated Red Blood Cells % 0.1 %
[2025-05-19] MEDS: POTASSIUM CHL 20 Meq TABLET PO ONE (10:15)
[2025-05-19 10:49] VITALS: BP 176/88; PULSE 89; RESP 20; TEMP 97.5; O2SAT 95
[2025-05-19] MEDS: HYDROcodone-ACET 5/325MG TAB PO PRN (11:07)
[2025-05-19 13:00] VITALS: BP 132/93; PULSE 79; RESP 20; TEMP 98.2; O2SAT 96
--- NOTE | 2025-05-19 13:40 | DVH ---
CLINICAL HISTORY: Evaluation of ureteral jets. TECHNIQUE: Grayscale sonographic imaging of the bladder was performed, assisted by color doppler sissy hnique. COMPARISON: XY KUB ABDOMEN SINGLE VIEW on DOS: 05/19/25, US KIDNEY on DOS: 05/18/25, US RT LOWER DVT on DOS: 05/18/25 FINDINGS: Bladder volume measures 285 mL. Bladder wall thickness measures 2.3 mm, within normal [place] its. Bilateral ureteral jets demonstrated. IMPRESSION: Bilateral ureteral jets demonstrated. Otherwise unremarkable examination as described above.
--- NOTE | 2025-05-19 13:55 | DVHPN2 ---
Progress Note - Dictate Date Seen: May 19, 2025 Has the PT tested + for MRSA If YES, has PT been informed?: No Medical Necessity Reason Pt with a Central, PICC or Fol: No Medical Necessity Reason Possible right distal ureteral calculus reported to be [address] urogram. Subjective No pain reported vital signs Vital Sign Date Time Temp Pulse Resp B/P (MAP) Pulse Ox O2 Delivery O2 Flow Rate FiO2 05/19/25 13:00 98.2 79 20 132/93 (106) 96 98.2 05/18/25 19:31 Room Air* 0 21 Total Intake and Output 05/18/25 05/18/25 05/19/25 15:00 23:00 07:00 Intake Total 250 ml 250 ml 300 ml Balance 250 ml 250 ml 300 ml medications Current Medications Medications Dose Ordered Sig/[place] Route Start Time Stop Time Status Last Admin Dose Admin Acetaminophen 325 mg Q4HP PRN PO 05/18/25 06:45 05/19/25 03:59 325 MG Morphine Sulfate 2 mg Q4HPRN PRN IV 05/18/25 06:45 Enoxaparin Sodium 40 mg DAILY SC 05/18/25 10:00 05/19/25 10:32 40 MG Meropenem 50 ml @ 17 mls/hr Q8HR IV 05/18/25 14:00 05/19/25 06:50 17 MLS/HR Vancomycin HCl 0 ml @ 0 mls/hr UD IV 05/18/25 06:45 Sodium Chloride 1,000 ml @ 75 mls/hr [id number] IV 05/18/25 11:00 05/19/25 02:06 75 MLS/HR Vancomycin HCl 250 ml @ 200 mls/hr Q8H IV 05/18/25 11:00 05/19/25 11:51 200 MLS/HR Tamsulosin HCl 0.4 mg QPM PO 05/18/25 18:00 05/18/25 19:19 0.4 MG Acetaminophen/ Hydrocodone Bitart 1 tab Q4HPRN PRN PO 05/19/25 10:15 05/19/25 11:07 1 TAB objective PATIENT: OFELIA FIGUEROA V ACCT: [id number] UNIT: [id number] : 1970 LOC: OVERFLOW ROOM / BED: 1022-ERT / A AGE / SEX: 55 / M ADM STATUS: ADM IN SERVICE 1238 ORDERING PHYSICIAN: HECTOR PARK MD PROCEDURE(s): BLDR - BLADDER REASON: check for ureteral jetting ORDER NUMBER(s): [id number], ACCESSION NUMBER(s): [id number] CLINICAL HISTORY: Evaluation of ureteral jets. TECHNIQUE: Grayscale sonographic imaging of the bladder was performed, assisted by color doppler technique. COMPARISON: XY KUB ABDOMEN SINGLE VIEW on DOS: 05/19/25, US KIDNEY on DOS: 05/18/25, US RT LOWER DVT on DOS: 05/18/25 FINDINGS: Bladder volume measures 285 mL. Bladder wall thickness measures 2.3 mm, within normal limits. Bilateral ureteral jets demonstrated. IMPRESSION: Bilateral ureteral jets demonstrated. Otherwise unremarkable examination as described above. ATED BY: JOSE MUÑOZ DO DICTATED DATE/TIME: 05/19/25 133 SIGNED BY: JOSE MUÑOZ DO SIGNED DATE/TIME: 05/19/251336 CC: laboratory and microbiology Laboratory Tests 05/19/25 11:55 05/19/25 04:57 05/18/25 07:53 Test 05/18/25 07:53 Range/Units Serum Glucose 157 H 74-106 mg/dL Assessment/Plan Right hydronephrosis- resolved Right distal ureteral stone- may have passed Follow up p.r.n. Plan discussed with: Patient HECTOR PARK MD May 19, 2025 13:55
--- NOTE | 2025-05-19 14:01 | DVHPNRES ---
Progress Note Date Seen: May 19, 2025 Resident Creating Document: LORI DAVID RESIDENT Medical Necessity Reason Pt with a Central, PICC or Fol: No Subjective Review of Systems Temo Zheng is a 55-year-old male patient who presents to the ED with chief complaint of nonhealing right foot wound which started two days before his admission, associated with right upper limb weakness. Patient has had multiple episodes of cellulitis, per patient 1st episode was 20 years ago and he has been having every year repeated events of cellulitis, last time he received IV antibiotics with vancomycin due to cellulitis secondary to MRSA. 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 He never completed cardiac surgery. He follows with his primary care physician who is Dr. Arce, in Dr. Dilan Arce is his infectious disease doctor. Denies any other associated symptoms. Ultrasound of the kidney revealed- Bilateral ureteral jets demonstrated. Renal ultrasound revealed- Jpcl-qh-[id number] right hydronephrosis. No left hydronephrosis. CT scan of the left foot revealed- No CT evidence of osteomyelitis. Lateral malleolar greater than medial malleolar soft tissue swelling. Arterial Doppler of the bilateral lower extremity revealed- No evidence of arterial occlusion or significant stenosis in either lower extremity. No findings are seen to suggest significant peripheral arterial disease. CT abdomen and pelvis- 9 mm distal right ureteral calculus resulting in moderate hydroureter and severe hydronephrosis. CT head- No evidence of acute intracranial abnormality identified on noncontrast enhanced CT. Chest x-ray- Increased interstital prominence. This may represent pulmonary vascular congestion and/or viral pneumonia. Venous Doppler right extremity- No right femoropopliteal venous thrombosis. Prominent right inguinal lymph node measures up to 2.3 cm. Past medical history: Hypertension, multiple episodes of cellulitis, infective endocarditis, osteomyelitis status post elbow surgery. Surgical history: Left elbow surgery Family history: Noncontributory Social history: Lives in [place] with girlfriend (next of kin). Current smoker (five cigarettes for the past five years, total of 1 pack-year history of smoking). Fentanyl abuse (last time on 05/17/2025. Denies current alcohol and other drug abuse Allergies: Nevarez we had Home medication: Lisinopril Patient was seen today at bedside. Labs and chart reviewed. Patient reported ongoing right leg pain, right leg swollen and tender, erythematous edematous with some ulcer. Blood culture no growth so far. Ultrasound of the kidney revealed- Bilateral ureteral jets demonstrated. Renal ultrasound revealed- Jgoe-tj-lomzzevr right hydronephrosis. No left hydronephrosis. CT scan of the left foot revealed- No CT evidence of osteomyelitis. Lateral malleolar greater than medial malleolar soft tissue swelling. Arterial Doppler of the bilateral lower extremity revealed- No evidence of arterial occlusion or significant stenosis in either lower extremity. No findings are seen to suggest significant peripheral arterial disease. CT abdomen and pelvis- 9 mm distal right ureteral calculus resulting in moderate hydroureter and severe hydronephrosis. CT head- No evidence of acute intracranial abnormality identified on noncontrast enhanced CT. Chest x-ray- Increased interstital prominence. This may represent pulmonary vascular congestion and/or viral pneumonia. Venous Doppler right extremity- No right femoropopliteal venous thrombosis. Prominent right inguinal lymph node measures up to 2.3 cm. Objective vital signs Vital Sign Date Time Temp Pulse Resp B/P (MAP) Pulse Ox O2 Delivery O2 Flow Rate FiO2 05/19/25 13:00 98.2 79 20 132/93 (106) 96 98.2 05/18/25 19:31 Room Air* 0 21 Total Intake and Output 05/18/25 05/18/25 05/19/25 15:00 23:00 07:00 Intake Total 250 ml 250 ml 300 ml Balance 250 ml 250 ml 300 ml medications Current Medications Medications Dose Ordered Sig/[place] Route Start Time Stop Time Status Last Admin Dose Admin Acetaminophen 325 mg Q4HP PRN PO 05/18/25 06:45 05/19/25 03:59 325 MG Morphine Sulfate 2 mg Q4HPRN PRN IV 05/18/25 06:45 Enoxaparin Sodium 40 mg DAILY SC 05/18/25 10:00 05/19/25 10:32 40 MG Meropenem 50 ml @ 17 mls/hr Q8HR IV 05/18/25 14:00 05/19/25 06:50 17 MLS/HR Vancomycin HCl 0 ml @ 0 mls/hr UD IV 05/18/25 06:45 Sodium Chloride 1,000 ml @ 75 mls/hr [id number] IV 05/18/25 11:00 05/19/25 02:06 75 MLS/HR Vancomycin HCl 250 ml @ 200 mls/hr Q8H IV 05/18/25 11:00 05/19/25 11:51 200 MLS/HR Tamsulosin HCl 0.4 mg QPM PO 05/18/25 18:00 05/18/25 19:19 0.4 MG Acetaminophen/ Hydrocodone Bitart 1 tab Q4HPRN PRN PO 05/19/25 10:15 05/19/25 11:07 1 TAB laboratory and microbiology Laboratory Tests 05/19/25 11:55 05/19/25 04:57 05/18/25 07:53 Test 05/18/25 07:53 Range/Units Serum Glucose 157 H 74-106 mg/dL Microbiology Date/Time Source Procedure Growth Status 05/18/25 01:44 Blood Blood Culture - Preliminary NO GROWTH AFTER 24 HOURS OF INCUBATION. Resulted Problem List/Assessment/Plan Problem List/Assessment/Plan Assessment and plan # Sepsis secondary to cellulitis of right foot #Rule out active infective endocarditis #Rule out septic emboli #Rule out CVA #History of osteomyelitis of right elbow status postop -Currently under empiric IV antibiotic (vancomycin and meropenem) -Pending blood, urine, sputum and wound -Consulted infectious disease (Dr. Dilan Arce) -Consulted wound care -Consulted Podiatry #Right ureteral nephrolithiasis with severe hydronephrosis and moderate hydroureter -CT abdomen pelvis: 9 mm distal right ureteral calculus resulting in moderate hydroureter and severe hydronephrosis. -urology consultation: Ultrasound with retroperitoneal ureteral jetting- Ultrasound of the kidney revealed- Bilateral ureteral jets demonstrated. -tamsulosin 0.4 mg p.o. daily -urine culture pending. #Sepsis due to right lower extremity cellulitis , ? Infective endocarditis, history of right elbow osteomyelitis -IV antibiotic with meropenem and vancomycin -WBC count 13, with neutrophil shift at 95.8%. -pending blood culture, wound culture. -right foot CT: Lateral malleolar greater than medial malleolar soft tissue swelling. #Ruled out right lower limb DVT Ruled out PAD -Completed ultrasound of lower limb which showed no DVT, presents prominent inguinal lymph node and measures 2.3 cm -Bilateral lower extremity arterial ultrasound:1. No evidence of arterial occlusion or significant stenosis in either lower extremity. 2. No findings are seen to suggest significant peripheral arterial disease. #Polysubstance abuse -Patient currently consumes tobacco (one pack-year history of smoking) and fentanyl (last time consumed was morning of 05/17/2025) -Counseled strongly on cessation for over 16 minutes. #Hypertension -Home medication lisinopril -Currently discontinued due to sepsis which can worsened. -Gave advice on healthy lifestyle habits #Low TSH ? Hyperthyroidism -TSH 0.47, pending free T4, free T3. #Prediabetic HGB A1c 5.8% on 05/18/2025 -lifestyle modification, low-carbohydrate index diet, regular exercise. #Hypokalemia -replenish potassium Goals of care, Code status full code ; discussed with >15 minutes PUD prophylaxis: Pantoprazole DVT prophylaxis: Lovenox Plan discussed with Dr. Hernandez , nursing staff, Total time spent on patient evaluation, chart review, assessment and plan, discussion discussion >35 minutes Plan discussed with: Patient, Other (RN) My Orders My Orders Orders - LORI DAVID Procedure Category Date Status Time Hydrocodone-Acet PHA 05/19/25 In Process 5/325mg Tab ([place] 10:15 Mrsa Screen BONIFACIO 05/19/25 Logged 11:39 Date of Service: May 19, 2025 Billing Provider: LORI DAVID MOHAMMED RESIDENT May 19, 2025 14:01
--- NOTE | 2025-05-19 14:30 | DVH ---
Date: 05/19/2025 01:10 PM Examination: XY KUB ABDOMEN SINGLE VIEW History: right ureteral stone Comparison: None TECHNIQUE: Frontal views of the abdomen was obtained. FINDINGS: Bowel gas pattern is unremarkable. Large stool burden throughout the colon. The lung bases are unremarkable. No acute osseous abnormality identified. IMPRESSION: 1. Nonobstructive bowel gas pattern. 2. Large stool burden throughout the colon. 3. No ureteral calcifications seen. Distal right ureteral calcification noted on CT abdomen pelvis . 4. If progression of that calculus is of clinical concern recommend repeat CT abdomen pelvis.
[2025-05-19] MEDS: NICOTINE 21MG/24 HR TOPICAL PATCH TD ONE (14:40)
[2025-05-19 15:53] LABS: Urine Protein, UAD Negative (Negative)
[2025-05-19 16:06] LABS: Amphetamine Screen, Urine Neg (NEGATIVE); Barbiturate Scree,Urine Neg (NEGATIVE); Benzodiazephine Screen, Urine Neg (NEGATIVE); Cannabinoid Screen, Urine Neg (NEGATIVE); Cocaine Screen, Urine Neg (NEGATIVE); Opiate Scree,Urine Neg (NEGATIVE); Phencyclidine Screen, Urine Neg (NEGATIVE)
--- NOTE | 2025-05-20 06:59 | DVHDSRES ---
Discharge Summary Date of Admission Resident Creating Document: LORI DAVID RESIDENT May 18, 2025 at 06:33 Date of Discharge: May 19, 2025 Admitting Diagnosis Sepsis secondary to cellulitis of right foot Rule out active infective endocarditis Labs/Diagnostic Data: Laboratory Results Test 05/19/25 15:21 05/19/25 11:55 05/19/25 10:05 05/19/25 04:57 Urine Color Light-yellow (Yellow) Urine Clarity Clear (Clear) Urine pH 6.5 (5.0-9.0) Urine Specific [place] 1.009 (1.001-1.035) Urine Protein Negative (Negative) Urine Ketones Negative (Negative) Urine Blood Negative /uL (Negative) Urine Nitrite Negative (Negative) Urine Bilirubin Negative (Negative) Urine Urobilinogen Normal mg/dL (Negative) Urine Leukocyte Esterase Negative /uL (Negative) Urine RBC <1 /hpf (0 - 3) Urine Microscopic WBC 3 /HPF (0-3) Urine Squamous Epithelial Cells Few /hpf (<5) Urine Bacteria None seen /hpf (None Seen) Urine Glucose Trace mg/dL (Normal) Urine Opiates Screen Neg (NEGATIVE) Urine Fentanyl Screen Pos (NEGATIVE) Urine Barbiturates Screen Neg (NEGATIVE) Urine Phencyclidine Screen Neg (NEGATIVE) Urine Amphetamines Screen Neg (NEGATIVE) Urine Benzodiazepines Screen Neg (NEGATIVE) Urine Cocaine Screen Neg (NEGATIVE) Urine Cannabinoids Screen Neg (NEGATIVE) Potassium Level 4.0 mmol/L (3.5-5.1) Vancomycin Level Trough 17.7 ug/mL (5-10) White Blood Count 5.9 10^3/uL (4.4-10.8) Red Blood Count 3.98 10^6/uL (4.5-5.90) Hemoglobin 12.0 g/dL (13.5-17.5) Hematocrit 34.1 % (41.0-53.0) Mean Corpuscular Volume 85.7 fL (80.0-100.0) Mean Corpuscular Hemoglobin 30.2 pg (28.0-32.0) Mean Corpuscular Hemoglobin Concent 35.2 g/dL (32.0-36.0) Red Cell Distribution Width 14.4 % (11.8-14.3) Platelet Count 228 10^3/uL (140-450) Mean Platelet Volume 6.8 fL (6.9-10.8) Neutrophils (%) (Auto) 75.3 % (37.0-80.0) Lymphocytes (%) (Auto) 12.6 % (10.0-50.0) Monocytes (%) (Auto) 9.9 % (0.0-12.0) Eosinophils (%) (Auto) 1.7 % (0.0-7.0) Basophils (%) (Auto) 0.5 % (0.0-2.0) Neutrophils # (Auto) 4.4 10 ^3/uL (1.6-8.6) Lymphocytes # (Auto) 0.7 10 ^3/uL (0.4-5.4) Monocytes # (Auto) 0.6 10 ^3/uL (0-1.3) Eosinophils # (Auto) 0.1 10 ^3/uL (0-0.8) Basophils # (Auto) 0 10 ^3/uL (0-0.2) Nucleated Red Blood Cells 0.1 % Creatinine 0.71 mg/dL (0.700-1.30) Glomerular Filtration Rate Calc 108 mL/min (>90) Test 05/18/25 07:53 05/18/25 01:44 Prothrombin Time 10.8 sec (9.3-11.8) Prothrombin Time INR 1.02 (0.9-1.15) Activated Partial Thromboplast Time 25.5 SEC (24.5-34.5) Sodium Level 136 mmol/L (136-145) Chloride Level 98 mmol/L (98-107) Carbon Dioxide Level 28 mmol/L (20-31) Anion Gap 10 (5-15) Blood Urea Nitrogen 12 mg/dL (9-23) BUN/Creatinine Ratio 15.8 (10.0-20.0) Serum Glucose 157 mg/dL (74-106) Hemoglobin A1c 5.8 % A1C (<5.7) Lactic Acid Level 1.2 mmol/L (0.4-2.0) Calcium Level 8.8 mg/dL (8.7-10.4) Phosphorus Level 2.3 mg/dL (2.4-5.1) Magnesium Level 1.7 mg/dL (1.6-2.6) Total Bilirubin 0.9 mg/dL (0.2-1.0) Aspartate Amino Transferase (AST) 25 U/L (13-40) Alanine Aminotransferase (ALT) 29 U/L (7-40) Alkaline Phosphatase 92 U/L (46-116) Total Protein 7.3 g/dL (5.7-8.2) Albumin 4.1 g/dL (3.2-4.8) Triglycerides Level 47 mg/dL (< 150) Cholesterol Level 101 mg/dL (< 200) LDL Cholesterol 53 mg/dL (< 100) HDL Cholesterol 43 mg/dL (40-59) Lipase 22 U/L (12-53) Vitamin B12 Level 433 pg/mL (211-911) Vitamin D 25-Hydroxy 46.6 ng/mL (30.0-100) Thyroid Stimulating Hormone (TSH) 0.47 uIU/mL (0.55-4.78) D-Dimer, Quantitative 0.51 mg/L FEU (0.0-0.49) Other Laboratory Tests 05/19/25 11:55 05/19/25 04:57 05/18/25 07:53 Brief Hx & Hospital Course: Temo Zheng is a 55-year-old male patient who presents to the ED with chief complaint of nonhealing right foot wound which started two days before his admission, associated with right upper limb weakness. Patient has had multiple episodes of cellulitis, per patient 1st episode was 20 years ago and he has been having every year repeated events of cellulitis, last time he received IV antibiotics with vancomycin due to cellulitis secondary to MRSA. 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 He never completed cardiac surgery. He follows with his primary care physician who is Dr. Arce, in Dr. Dilan Arce is his infectious disease doctor. Denies any other associated symptoms. Ultrasound of the kidney revealed- Bilateral ureteral jets demonstrated. Renal ultrasound revealed- Kcjj-ow-[id number] right hydronephrosis. No left hydronephrosis. CT scan of the left foot revealed- No CT evidence of osteomyelitis. Lateral malleolar greater than medial malleolar soft tissue swelling. Arterial Doppler of the bilateral lower extremity revealed- No evidence of arterial occlusion or significant stenosis in either lower extremity. No findings are seen to suggest significant peripheral arterial disease. CT abdomen and pelvis- 9 mm distal right ureteral calculus resulting in moderate hydroureter and severe hydronephrosis. CT head- No evidence of acute intracranial abnormality identified on noncontrast enhanced CT. Chest x-ray- Increased interstital prominence. This may represent pulmonary vascular congestion and/or viral pneumonia. Venous Doppler right extremity- No right femoropopliteal venous thrombosis. Prominent right inguinal lymph node measures up to 2.3 cm. Patient was being treated conservatively with IV antibiotic meropenem and vancomycin. Pending podiatry consult, ID consult, wound consult, Urology consult, pending echo 2D. Patient left AMA. Patients condition was undetermined on discharge. Operations or Procedures [place] [address] Ph: [phone] DIAGNOSTIC IMAGING Diagnostic Imaging Report : [id number] Signed PATIENT: TEMO ZHENG V ACCT: [id number] UNIT: [id number] : 1970 LOC: ER ROOM / BED: / AGE / SEX: 55 / M ADM STATUS: REG ER SERVICE 4 ORDERING PHYSICIAN: SHIMON HUNG PROCEDURE(s): RLDVT - RT Lower DVT REASON: POSITIVE D-DIMER. RIGHT FOOT, ANKLE EDEMA, ERYTHEMA ORDER NUMBER(s): [id number], ACCESSION NUMBER(s): [id number] Right lower extremity venous duplex Clinical History: POSITIVE D-DIMER. RIGHT FOOT, ANKLE EDEMA, ERYTHEMA Comparison: None Technique: Duplex Doppler evaluation of the deep venous system of the right lower extremity from the common femoral vein to the popliteal vein including color Doppler and spectral/pulsed waveform analysis was performed. Findings: The common femoral vein demonstrates appropriate compressibility and waveform variability. There is compressibility/patency of the great saphenous vein at the proximal thigh. The femoral vein demonstrates appropriate compressibility and waveform variability. The deep femoral vein demonstrates appropriate compressibility and waveform variability. The popliteal vein demonstrates appropriate compressibility and waveform variability. There is normal compressibility at the tibioperoneal trunk. Prominent right inguinal lymph node measures up to 2.3 cm. Impression: 1. No right femoropopliteal venous thrombosis. 2. Prominent right inguinal lymph node measures up to 2.3 cm. ATED BY: WILMA BHATT MD DICTATED DATE/TIME: 05/18/25 7880 SIGNED BY: WILMA BHATT MD SIGNED DATE/TIME: 05/18/25 0418 CC: [place] [address] Ph: [phone] DIAGNOSTIC IMAGING Diagnostic Imaging Report : [id number] Signed PATIENT: TEMO ZHENG V ACCT: [id number] UNIT: [id number] : 1970 LOC: OVERFLOW ROOM / BED: [address] [place] [address] AGE / SEX: 55 / M ADM STATUS: ADM IN SERVICE 7 ORDERING PHYSICIAN: NADINE FRANCES PROCEDURE(s): CXR1 - CHEST XRAY 1 VIEW REASON: History of infective endocarditis ORDER NUMBER(s): [id number], ACCESSION NUMBER(s): [id number] CHEST RADIOGRAPH Indication: History of infective endocarditis Technique: Single frontal view of the chest was obtained COMPARISON: XY CHEST PORTABLE on DOS: 04/20/25, CHEST PORTABLE on DOS: 09/09/22, CXRP on DOS: 09/09/22 FINDINGS: Lines and Tubes: None Lungs: Congestion Pleura: No effusion. No pneumothorax. Cardiomediastinal contours: Cardiomegaly Bones: Unremarkable IMPRESSION: Increased interstital prominence. This may represent pulmonary vascular congestion and/or viral pneumonia. Clinical correlation advised. ATED BY: ANGELO CURRY MD DICTATED DATE/TIME: 05/18/25753 SIGNED BY: ANGELO CURRY MD SIGNED DATE/TIME: 05/18/25 285 CC: [place] [address] Ph: [phone] DIAGNOSTIC IMAGING Diagnostic Imaging Report : [id number] Signed PATIENT: TEMO ZHENG V ACCT: [id number] UNIT: [id number] : 1970 LOC: OVERFLOW ROOM / BED: [address] [place] [address] AGE / SEX: 55 / M ADM STATUS: ADM IN SERVICE 7 ORDERING PHYSICIAN: NADINE FRANCES PROCEDURE(s): HWOCT - HEAD WITHOUT CONTRAST REASON: Rule out septic emboli ORDER NUMBER(s): [id number], ACCESSION NUMBER(s): [id number] CLINICAL INFORMATION: Rule out septic emboli. History of endocarditis. TECHNIQUE: Axial imaging was obtained through the brain without contrast. Coronal and sagittal reformatted images were obtained, reviewed, and stored. Images were reviewed in brain and bone windows. All CT scans at this medical facility are performed using dose modulation techniques as appropriate to a performed exam including the following: Automated exposure control was utilized; adjustment of the MA and/or KV according to patient size; and use of iterative reconstruction technique. CTDIvol = 52.69 mGy DLP = 844.82 mGy-cm COMPARISON: None FINDINGS: There is no acute intracranial hemorrhage. No mass effect or midline shift. The ventricles and sulci are within normal limits in size for age. Basal cisterns are patent. The calvarium is unremarkable. Mild mucosal thickening of the paranasal sinuses. IMPRESSION: No evidence of acute intracranial abnormality identified on noncontrast enhanced CT. If there is clinical concern for septic emboli, MRI brain without and with contrast would be more sensitive. ATED BY: GUY MUÑOZ DO DICTATED DATE/TIME: 05/18/25749 SIGNED BY: GUY MUÑOZ DO SIGNED DATE/TIME: 05/18/25749 CC: [place] [address] Ph: [phone] DIAGNOSTIC IMAGING Diagnostic Imaging Report : [id number] Signed PATIENT: TEOM ZHENG V ACCT: [id number] UNIT: [id number] : 1970 LOC: OVERFLOW ROOM / BED: [address] [place] [address] AGE / SEX: 55 / M ADM STATUS: ADM IN SERVICE 9 ORDERING PHYSICIAN: NADINE FRANCES RESIDENT PROCEDURE(s): ABPLIV - CT AB PEL WITH IV CON ONLY REASON: POSSIBLE SEPTIC EMBOLI ORDER NUMBER(s): [id number], ACCESSION NUMBER(s): [id number] CLINICAL HISTORY: POSSIBLE SEPTIC EMBOLI TECHNIQUE: CT of the abdomen and pelvis was performed with IV contrast. This exam was performed according to our departmental dose optimization program. Up-to-date CT equipment and radiation dose reduction techniques are utilized as appropriate. CTDI 7.5 DLP 353 COMPARISON: None FINDINGS: Abdomen/Pelvis: The spleen, pancreas, liver, gallbladder, adrenal glands, left kidney, bladder, and prostate gland are unremarkable. There is a 9 mm distal right ureteral calculus resulting in severe hydronephrosis and moderate hydroureter. The abdominal aorta is normal in course and caliber. There are mild atherosclerotic changes. The celiac, superior mesenteric, bilateral renal, and inferior mesenteric arteries are patent with no significant stenosis. The large branches of the abdominal aorta are patent with no significant stenosis. There is no free intraperitoneal air or fluid. There is no enlarged abdominal or pelvic lymph node. There is no bowel wall thickening or dilatation. The appendix is normal. There is a moderate to large amount of stool in the colon. Other: The imaged lower thorax is unremarkable. No acute osseous abnormality is evident. IMPRESSION: 9 mm distal right ureteral calculus resulting in moderate hydroureter and severe hydronephrosis. ATED BY: ARNULFO HARRY MD DICTATED DATE/TIME: 05/18/25 105 SIGNED BY: ARNULFO HARRY MD SIGNED DATE/TIME: 05/18/251056 CC: [place] [address] Ph: [phone] DIAGNOSTIC IMAGING Diagnostic Imaging Report : [id number] Signed PATIENT: TEMO ZHENG V ACCT: [id number] UNIT: [id number] : 1970 LOC: OVERFLOW ROOM / BED: [address] [place] [address] AGE / SEX: 55 / M ADM STATUS: ADM IN SERVICE 1102 ORDERING PHYSICIAN: NADINE FRANCES RESIDENT PROCEDURE(s): BLEAD - BiLat Low Ext Art Duplex REASON: Rule out PAD ORDER NUMBER(s): [id number], ACCESSION NUMBER(s): [id number] CLINICAL HISTORY: Rule out peripheral arterial disease. TECHNIQUE: Bilateral lower extremity arterial duplex exam was performed. Grayscale, color Doppler, and spectral waveform analysis was performed. COMPARISON: US RT LOWER DVT on DOS: 05/18/25 FINDINGS: Right Lower Extremity: Scattered mild atherosclerotic plaque. No focal stenosis or occlusion visualized. Triphasic waveforms are seen throughout the right lower extremity. Left Lower Extremity: Scattered mild atherosclerotic plaque. No focal stenosis or occlusion visualized. Triphasic waveforms are seen throughout the left lower extremity. EXAMINATION DATA: RIGHT PSV (cm/sec) APPLIANCE TECHNICIAN 82 Profunda 69 SFA Prox 103 SFA Mid 74 SFA Dist 57 POP A 82 MOLD REPAIRER 117 DPA 62 LEFT PSV (cm/sec) APPLIANCE TECHNICIAN 106 Profunda 94 SFA Prox 110 SFA Mid 94 SFA Dist 96 POP A 72 MOLD REPAIRER 82 DPA 49 IMPRESSION: 1. No evidence of arterial occlusion or significant stenosis in either lower extremity. 2. No findings are seen to suggest significant peripheral arterial disease. ATED BY: GUY MUÑOZ DO DICTATED DATE/TIME: 05/18/251530 SIGNED BY: GUY MUÑOZ DO SIGNED DATE/TIME: 05/18/251530 CC: [place] [address] Ph: [phone] DIAGNOSTIC IMAGING Diagnostic Imaging Report : [id number] Signed PATIENT: TEMO ZHENG V ACCT: [id number] UNIT: [id number] : 1970 LOC: OVERFLOW ROOM / BED: [address] [place] [address] AGE / SEX: 55 / M ADM STATUS: ADM IN SERVICE 01 ORDERING PHYSICIAN: NADINE FRANCES RESIDENT PROCEDURE(s): RFTCT - CT R FOOT WO CONTRAST REASON: Rule out osteomyelitis of right foot ORDER NUMBER(s): [id number], ACCESSION NUMBER(s): [id number] EXAM: CT CT R FOOT WO CONTRAST INDICATION: Rule out osteomyelitis of right foot TECHNIQUE: Axial images of right foot without contrast have been obtained along with coronal and sagittal reformatted images. All CT scans at this facility use dose modulation, iterative reconstruction, and/or weight based dosing when appropriate to reduce radiation dose to as low as reasonably achievable. COMPARISON: None FINDINGS: BONES: No CT evidence of an acute fracture or aggressive osseous lesion. Well corticated ossicles inferior to the lateral malleolus compatible with prior avulsive injury. Minimal asymmetric degenerative change of the 1st metatarsophalangeal joint. No abnormal osseous erosion, lucency, sclerosis to suggest osteomyelitis. MUSCLES: No abnormal attenuation. JOINT SPACES: No joint effusion. TENDONS/LIGAMENTS: Intact. OTHER: Lateral malleolar greater than medial malleolar soft tissue swelling. No visualized drainable fluid collection IMPRESSION: 1. No CT evidence of osteomyelitis. 2. Lateral malleolar greater than medial malleolar soft tissue swelling. ATED BY: ROSALINO SANON MD DICTATED DATE/TIME: 05/18/251347 SIGNED BY: ROSALINO SANON MD SIGNED DATE/TIME: 05/18/251347 CC: [place] [address] Ph: [phone] DIAGNOSTIC IMAGING Diagnostic Imaging Report : [id number] Signed PATIENT: TEMO ZHENG V ACCT: [id number] UNIT: [id number] : 1970 LOC: OVERFLOW ROOM / BED: [address] [place] [address] AGE / SEX: 55 / M ADM STATUS: ADM IN SERVICE 26 ORDERING PHYSICIAN: HECTOR PARK MD PROCEDURE(s): KIDUS - KIDNEY REASON: Right hydronephrosis ORDER NUMBER(s): [id number], ACCESSION NUMBER(s): [id number] [id number] ULTRASOUND CLINICAL HISTORY: Right hydronephrosis TECHNIQUE: Multiple grayscale ultrasound images were obtained through the kidneys and urinary bladder. COMPARISON: None FINDINGS: Right kidney: Measures 11.9 cm. Wxxd-bl-ixrtihwa hydronephrosis. Left kidney: Measures 11.6 cm. No hydronephrosis. Urinary bladder: Unremarkable. Prevoid volume is 556.6 mL IMPRESSION: 1. Oaeb-fe-pywknznq right hydronephrosis. 2. No left hydronephrosis. ATED BY: ELEAZAR CHANEY MD DICTATED DATE/TIME: 05/18/252034 SIGNED BY: ELEAZAR CHANEY MD SIGNED DATE/TIME: 05/18/252034 CC: [place] [address] Ph: [phone] DIAGNOSTIC IMAGING Diagnostic Imaging Report : [id number] Signed PATIENT: TEMO ZHENG V ACCT: [id number] UNIT: [id number] : 1970 LOC: OVERFLOW ROOM / BED: [address] [place] [address] / A AGE / SEX: 55 / M ADM STATUS: ADM IN SERVICE 1238 ORDERING PHYSICIAN: HECTOR PARK MD PROCEDURE(s): BLDR - BLADDER REASON: check for ureteral jetting ORDER NUMBER(s): [id number], ACCESSION NUMBER(s): [id number] CLINICAL HISTORY: Evaluation of ureteral jets. TECHNIQUE: Grayscale sonographic imaging of the bladder was performed, assisted by color doppler technique. COMPARISON: XY KUB ABDOMEN SINGLE VIEW on DOS: 05/19/25, US KIDNEY on DOS: 05/18/25, US RT LOWER DVT on DOS: 05/18/25 FINDINGS: Bladder volume measures 285 mL. Bladder wall thickness measures 2.3 mm, within normal limits. Bilateral ureteral jets demonstrated. IMPRESSION: Bilateral ureteral jets demonstrated. Otherwise unremarkable examination as described above. ATED BY: GUY MUÑOZ DO DICTATED DATE/TIME: 05/19/251336 SIGNED BY: GUY MUÑOZ DO SIGNED DATE/TIME: 05/19/251336 CC: [place] [address] Ph: [phone] DIAGNOSTIC IMAGING Diagnostic Imaging Report : [id number] Signed PATIENT: TEMO ZHENG V ACCT: [id number] UNIT: [id number] : 1970 LOC: OVERFLOW ROOM / BED: [address] [place] [address] AGE / SEX: 55 / M ADM STATUS: ADM IN SERVICE 1238 ORDERING PHYSICIAN: HECTOR PARK MD PROCEDURE(s): KUB - KUB ABDOMEN SINGLE VIEW REASON: right ureteral stone ORDER NUMBER(s): [id number], ACCESSION NUMBER(s): [id number] Date: 05/19/2025 01:10 PM Examination: XY KUB ABDOMEN SINGLE VIEW History: right ureteral stone Comparison: None TECHNIQUE: Frontal views of the abdomen was obtained. FINDINGS: Bowel gas pattern is unremarkable. Large stool burden throughout the colon. The lung bases are unremarkable. No acute osseous abnormality identified. IMPRESSION: 1. Nonobstructive bowel gas pattern. 2. Large stool burden throughout the colon. 3. No ureteral calcifications seen. Distal right ureteral calcification noted on CT abdomen pelvis 05/18/2025. 4. If progression of that calculus is of clinical concern recommend repeat CT abdomen pelvis. ATED BY: KAMILAH LIGHT Jr., DO DICTATED DATE/TIME: 05/19/25 142 SIGNED BY: KAMILAH LIGHT Jr., SIGNED DATE/TIME: 05/19/251426 CC: Condition at Discharge: Undetermined Final Diagnosis/Problems List # Sepsis secondary to cellulitis of right foot # infective endocarditis could not be ruled out # septic emboli could not be ruled out #Ruled out CVA #History of osteomyelitis of right elbow status postop #Right ureteral nephrolithiasis with severe hydronephrosis and moderate hydroureter #Sepsis due to right lower extremity cellulitis , ? Infective endocarditis, history of right elbow osteomyelitis #Ruled out right lower limb DVT #Ruled out PAD #Polysubstance abuse #Hypertension #Prediabetic HGB A1c 5.8% on 05/18/2025 #Hypokalemia Discharge Disposition: AMA Discharge Instruct/Medications Follow Up/Referral: Patient left AMA Medications: Patient left AMA Scheduled Atenolol (Atenolol), 1 TAB PO DAILY, (Reported) Discharge Statement: "Patient was advised to return to the ER or call 911 if any headaches, dizziness, shortness of breath, chest pain, abdominal pain, bleeding, fevers, or worsening of medical condition. Patient was counseled about treatment plan, medications, possible side effects, patientverbalized understanding. All questions were answered to the best of my ability. This discharge took greater then 30 minutes in planning, reviewing documentation, counseling the patient, and discussing with other team members." ASSESSMENT ASSESSMENT Assessment Date of Service: May 20, 2025 Billing Provider: LORI DAVID RESIDENT LORI DAVID RESIDENT May 20, 2025 06:59
[2025-05-20 10:23] LABS: Free T3 3.32 pg/mL (2.3-4.2); Free T4 (Free Thyroxine) 1.15 ng/dL (0.89-1.76)
== END 2025-05-19 15:30 | disposition left against medical advice (07) | DRG 720 ==
LOC: ER 00:54 → OVERFLOW 06:33
PROVIDERS: ADMIT Student in an Organized Health Care Education/Training Program; ATTEND Specialist
DX: A41.02 Sepsis due to Methicillin resistant Staphylococcus aureus (principal); I76 Septic arterial embolism; I33.0 Acute and subacute infective endocarditis; N13.2 Hydronephrosis with renal and ureteral calculous obstruction; L03.115 Cellulitis of right lower limb; I10 Essential (primary) hypertension; R73.03 Prediabetes; F17.210 Nicotine dependence, cigarettes, uncomplicated; E87.6 Hypokalemia; Z53.29 Procedure and treatment not carried out because of patient's decision for other reasons; F19.10 Other psychoactive substance abuse, uncomplicated; Z83.3 Family history of diabetes mellitus
CPT/HCPCS: 36415; 70450; 71045; 73700; 74018; 74177; 76775; 76857; 80053; 80061; 80202; 80307; 81001; 82306; 82565; 82607; 83036; 83605; 83690; 83735; 84100; 84132; 84439; 84443; 84481; 85025; 85379; 85610; 85730; 87040; 87081; 87086; 93925; 93971; 96365; G0378; J2185